=== PATIENT | male | born 1970 | race Caucasian/White ===

== ENCOUNTER 2024-01-07 15:03 | Inpatient (IN) | payer SELFPAY ==
[2024-01-07] VITALS (12 sets, daily range): BP systolic 104–141; BP diastolic 66–90; PULSE 94–108; RESP 14–27; TEMP 36.6–37.2; O2SAT 92–97; BMI 28.6; BMI 28.0
--- NOTE | 2024-01-07 15:29 | EKG12_ITS ---
Test Reason : HYPOGLYCEMIA Blood Pressure : / mmHG Vent. Rate : 109 BPM Atrial Rate : 109 BPM P-R Int : 144 ms QRS Dur : 080 ms QT Int : 332 ms P-R-T Axes : 027 012 031 degrees QTc Int : 447 ms Sinus tachycardia Otherwise normal ECG Confirmed by NAVNEET CRUZ, JUANITO ([id number]), sound editor MCKINLEY HERNANDEZ ([id number]) on 01/09/2024 10:00:14 AM Referred By: Confirmed By:VIRGIL TOTH MD
[2024-01-07] MEDS: 0.9% Normal Saline (1000mL) 1,000 ML 999 ML IV ×2 (15:52→17:40)
[2024-01-07 15:58] LABS: Blood Gas Specimen Type VEN; O2 Delivery Device Not entered; SITE Not entered; VBG BASE EXCESS 0 mmol/L (-1.0-3.5); VBG Bicarbonate 24 mmol/L (22-26); VBG PO2 54 mmHg (25-40); VBG SO2 89 % (50-70); VBG TCO2 25 mmol/L (23-33); VBG pCO2 35.3 mmHg (41-51); VBG pH 7.44 (7.32-7.42)
[2024-01-07 15:58] LABS: Absolute Lymphocyte Count 0.83 X10^3/uL (0.83-4.51); Absolute Neutrophil Count 12.5 X10^3/uL (2.0-7.7); Basophil# 0.04 X10^3/uL; Basophil% 0.3 % (0-1); Eosinophil# 0.03 X10^3/uL; Eosinophils% 0.2 % (0-5); Hematocrit 34.3 % (40-54); Hemoglobin 11.8 g/dL (13.0-16.5); Lymphocyte # 0.83 X10^3/ul (0.83-4.51); Lymphocyte % 5.2 % (19-41); Mean Corp Hgb Conc 34.4 g/dL (32-36); Mean Corpuscular Hgb 28.6 pg (27.0-32.0); Mean Corpuscular Volume 83.3 fL (80-94); Mean Platelet Vol. 11.1 fl (6.2-12.0); Monocyte# 2.11 X10^3/uL; Monocyte% 13.2 % (0-10); NRBC Flagged by Analyzer 0 % (0-5); Neutrophil # 12.48 X10^3/uL (2.7-7.7); Neutrophil % 78.2 % (47-70); POSITIVE DIFFERENTIAL YES; Platelet Count 123 K/mm3 (150-450); RBC Distribution Width CV 14.1 % (11.6-14.6); Red Blood Count 4.12 M/mm3 (4.6-6.2)
[2024-01-07 16:00] LABS: Differential Indicated SCAN CRITERIA MET
--- NOTE | 2024-01-07 16:00 | RAD_ITS ---
STUDY: X-RAY CHEST REASON FOR EXAM: Male, 53 years old. weakness TECHNIQUE: PA and lateral views of the chest. COMPARISON: None. FINDINGS: The lungs are clear and expanded. There is no demonstrated pleural abnormality. Normal size heart. Normal mediastinum and iron. Normal visualized pulmonary arteries. Normal visualized aortic arch and descending thoracic aorta. Normal visualized thoracic spine. Normal visualized ribs, clavicles, and shoulders. There is no demonstrated abnormality of the visualized soft tissue structures of the upper abdomen. RAD/Chest PA and Lateral IMPRESSION: Normal x-ray examination of the chest. Electronically Signed: Jono Dorsey MD at 16:12 EDT ,
--- NOTE | 2024-01-07 16:05 | EDS_ITS ---
HPI History of Present Illness Chief Complaint: Hyperglycemia Informant: patient Narrative Narrative: Patient is a 53-year-old male with history of [id number] diabetes mellitus as well as lisinopril presenting with generalized malaise and elevated blood sugar. Blood sugar at home was greater than 500. Yesterday family knows that he started to be generally weak, have increased urination and act confused. Family at the bedside also notes his color seems off. Patient states has been compliant with his medications but has not recently had an A1c (has an order but has not gotten it done yet). 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 Does have history of hospitalization for hyperglycemia 10 years ago when he was first diagnosed with diabetes. Denies any reported fever, nausea, vomiting, chest pain, shortness of breath or other acute complaints at this time besides generally does not feeling well. No other complaints or concerns reported at this time. [facility] Medical History (Updated 01/08/24 @ 01:[address] 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 Smoking Status: Current every day smoker tobacco type: cigarettes and smokeless tobacco alcohol intake: never substance use type: does not use ROS ROS ED Constitutional Constitutional ED: Reports sweats; Denies chills or fever(s) Eyes Eyes: Denies change in vision ENT ENT ED: Denies sore throat Cardiovascular Cardiovascular: Denies chest pain Respiratory/Chest Respiratory/Chest: Denies cough or dyspnea Gastrointestinal Gastrointestinal: Denies abdominal pain, diarrhea, nausea or vomiting Genitourinary Genitourinary ED: Reports urinary frequency; Denies dysuria Musculoskeletal Musculoskeletal: Reports back pain and other Details: Chronic low back pain, no significant change at this time Integumentary Denies rash Neurologic Neurologic: Reports weakness; Denies headache(s) Hematologic/Lymphatic Hematologic/Lymphatic: Denies easy bleeding EXAM Physical Exam Const Vital Signs: 01/07/24 15:04 01/07/24 15:54 01/07/24 16:00 Temperature 98.2 F Temperature Source Temporal Pulse Rate 108 H 108 H Respiratory Rate 16 21 H Respiratory Effort Normal Respiratory Pattern Tachypnea Blood Pressure 112/67 111/81 H Blood Pressure Mean 82 90 Pulse Ox 96 96 Oxygen Delivery Method Room Air Room Air 01/07/24 16:00 01/07/24 16:15 01/07/24 16:30 Temperature 98.9 F Temperature Source Oral Pulse Rate 103 H 98 Respiratory Rate 18 25 H Respiratory Effort Respiratory Pattern Blood Pressure 111/81 H 113/72 124/79 H Blood Pressure Mean 90 84 88 Pulse Ox 94 96 Oxygen Delivery Method Room Air Room Air 01/07/24 16:45 01/07/24 17:00 01/07/24 17:30 Temperature 98.7 F Temperature Source Pulse Rate 95 101 H 106 H Respiratory Rate 14 18 22 H Respiratory Effort Respiratory Pattern Blood Pressure 111/66 108/73 109/71 Blood Pressure Mean 82 86 83 Pulse Ox 93 92 97 Oxygen Delivery Method Room Air 01/07/24 17:45 01/07/24 17:58 Temperature 98.7 F Temperature Source Oral Pulse Rate 104 H Respiratory Rate 17 Respiratory Effort Respiratory Pattern Tachypnea Blood Pressure 122/71 H Blood Pressure Mean 88 Pulse Ox 94 Oxygen Delivery Method Room Air Positive well nourished and well developed Constitutional Narrative: Ill-appearing General Appearance ED: well developed and pallor HEENT Reports dry mucous membranes Mouth ED: Yes dry mucous membranes Mouth: dry mucous membranes Eyes PERRL and EOMs intact bilaterally General Eye ED: Negative for pale conjunctiva or scleral icterus Neck supple and no JVD General: Negative for tenderness Chest Wall inspection of chest normal Resp Resp Narrative: Tachypneic, rhonchorous breath sounds at the bases, right worse than left Auscultation: Negative for wheezes Cardio regular rhythm Rate: tachycardic GI normal to inspection, nondistended, normoactive bowel sounds and non-tender Back/Spine no CVA tenderness Extremity normal to inspection Neuro oriented x3 Neuro Narrative: Acting appropriate but generally weak and slightly slow to respond. Speech is not slurred but is not as sharp as typical (I suspect this is more from dry mouth) Sensorium / Orientation: alert Motor Exam: general weakness Psych mental status grossly normal Skin no rashes or lesions noted and no wounds General Skin Exam: pallor MDM MDM MDM Narrative Medical decision making narrative: Patient is evaluate for generalized weakness and elevated blood glucose. Patient is ill-appearing but nontoxic. Vital signs significant for tachycardia and he is also tachypneic on my examination. Workup for DKA, HHNK as well as underlying infection or cardiac cause of the elevated blood sugar is started. Patient is given IV fluids in the emergency room initially. Patient is white blood cell count of 16,000 with left shift. Lactate is normal. VBG is largely normal with no signs of acidosis. His BMP does show hyperglycemia with hyponatremia of 124 which I suspect is pseudo associated with his hyperglycemia. Creatinine is elevated at 1.61 but do not have a baseline to compare to. Bicarb and anion gap are normal. Acetone is negative. He is hyperglycemic and after liter of fluid is continue to have an elevated blood sugars was given 10 units of insulin. Patient still does weak-appearing. Will be admitted for further evaluation, treatment of his hyperglycemia and treatment of presumed DIVINE. Case discussed admitting physician, Dr. Ibarra, who is agreeable this plan of care. Lab Data Attestation: I reviewed the patient's lab results. Labs: Laboratory Results - last 24 hr 01/07/24 01/07/24 01/07/24 15:47 15:50 16:16 WBC 16.0 H RBC 4.12 L Hgb 11.8 L Hct 34.3 L MCV 83.3 MCH 28.6 MCHC 34.4 RDW Std Deviation 43.0 RDW Coeff of Yassine 14.1 Plt Count 123 L MPV 11.1 Immature Gran % (Auto) 2.900 H Neut % (Auto) 78.2 H Lymph % (Auto) 5.2 L [place] % (Auto) 13.2 H Eos % (Auto) 0.2 Baso % (Auto) 0.3 Absolute Neuts (auto) 12.5 H Absolute Lymphs (auto) 0.83 Nucleated RBC % 0 Differential Comment SEE COMMENT Diff Path Review May foll Platelet Estimate SLT DEC RBC Morphology N CHROM Anisocytosis RARE Sodium 124 L Potassium 3.8 Chloride 90 L Carbon Dioxide 23.0 Anion Gap 11 BUN 72 H Creatinine 1.61 H Estim Creat Clear Calc 54.06 Est GFR (MDRD) Af Amer 58 L Est GFR (MDRD) Non-Af 48 L BUN/Creatinine Ratio 44.7 H Glucose 490 H* Hemoglobin A1c 10.8 H Lactic Acid 0.6 Calcium 9.9 Total Bilirubin 1.70 H AST 22 ALT 30 Alkaline Phosphatase 183 H Total Protein 6.7 Albumin 2.0 L Globulin 4.7 H Albumin/Globulin Ratio 0.4 L Urine Color Urine Clarity Urine pH Ur Specific [place] Urine Protein Urine Glucose (UA) Urine Ketones Urine Occult Blood Urine Nitrite Urine Bilirubin Urine Urobilinogen Ur Leukocyte Esterase Urine RBC Urine WBC Ur Squamous Epith Cells Urine Bacteria Urine Mucus Urine Opiates Screen Urine Methadone Screen Ur Barbiturates Screen Ur Phencyclidine Scrn Ur Amphetamines Screen MDMA (Ecstasy) Screen U Benzodiazepines Scrn Urine Cocaine Screen U Cannabinoids Screen Ur Drug Screen Comment Acetone Level NEGATIVE POC Glucose 439 H 01/07/24 01/07/24 01/07/24 16:23 16:40 18:10 WBC RBC Hgb Hct MCV MCH MCHC RDW Std Deviation RDW Coeff of Yassine Plt Count MPV Immature Gran % (Auto) Neut % (Auto) Lymph % (Auto) [place] % (Auto) Eos % (Auto) Baso % (Auto) Absolute Neuts (auto) Absolute Lymphs (auto) Nucleated RBC % Differential Comment Diff Path Review Platelet Estimate RBC Morphology Anisocytosis Sodium Potassium Chloride Carbon Dioxide Anion Gap BUN Creatinine Estim Creat Clear Calc Est GFR (MDRD) Af Amer Est GFR (MDRD) Non-Af BUN/Creatinine Ratio Glucose Hemoglobin A1c Lactic Acid Calcium Total Bilirubin AST ALT Alkaline Phosphatase Total Protein Albumin Globulin Albumin/Globulin Ratio Urine Color Yellow Urine Clarity Clear Urine pH 6.0 Ur Specific [place] 1.010 Urine Protein 15 H Urine Glucose (UA) 1000 H Urine Ketones Negative Urine Occult Blood 25 H Urine Nitrite Negative Urine Bilirubin Negative Urine Urobilinogen Normal Ur Leukocyte Esterase Negative Urine RBC 0 SEEN Urine WBC 0 SEEN Ur Squamous Epith Cells 0 SEEN Urine Bacteria 1+ Urine Mucus 0 SEEN Urine Opiates Screen NEGATIVE Urine Methadone Screen NEGATIVE Ur Barbiturates Screen NEGATIVE Ur Phencyclidine Scrn NEGATIVE Ur Amphetamines Screen NEGATIVE MDMA (Ecstasy) Screen NEGATIVE U Benzodiazepines Scrn NEGATIVE Urine Cocaine Screen NEGATIVE U Cannabinoids Screen NEGATIVE Ur Drug Screen Comment Acetone Level POC Glucose 431 H 372 H ABG Data ABG results: ABG 01/07/24 15:55 Specimen Type FELTON Sample Site Not entered VBG pH 7.44 H VBG pO2 54 H VBG HCO3 24 VBG Total CO2 25 VBG O2 Sat (Calc) 89 H VBG Base Excess 0 POC Mix VBG pCO2 Pt Tmp 35.3 L O2 Delivery Device Not entered Radiography Chest X-Ray - ED: 2 View, Read by ED Physician, Read by Radiologist and No Acute Disease Diagnostic Testing: Clinical Impression(s) from Imaging Studies Chest X-Ray 01/07/24 16:00 IMPRESSION: Normal x-ray examination of the chest. Electronically Signed: Jono Dorsey MD at 16:12 EDT , Rhythm Strip Rhythm Strip: Sinus Tach Rate: 109 Ectopy: None EKG Initial EKG: Attestation: I personally reviewed and interpreted this EKG as follows: Interpretation: Sinus Tachycardia Comments: Sinus tachycardia rate of 109 bpm Normal axis Normal intervals Normal ST segments Management Discussion w/another healthcare provider: Hospitalist Discharge Plan Dx/Rx/DC Orders Clinical Impression: Hyperglycemia, Pseudohyponatremia, Elevated serum creatinine, Leukocytosis Disposition Disposition: Acute Care Hospital [facility] Discharge Date/Time: 01/07/24 19:47
[2024-01-07 16:14] LABS: Bedside Glucose 439 mg/dL (74-106)
[2024-01-07 16:35] LABS: Mucous, Urine 0 SEEN /hpf (<or=2+); Red Blood Cells-Urine 0 SEEN /hpf (0-5); Squamous Epithelial Cells - UA 0 SEEN /hpf (0-5); White Blood Cells 0 SEEN /hpf (0-5)
[2024-01-07 16:40] LABS: Color, Urine Yellow (Yellow); Glucose, Dipstick 1000 mg/dl (Normal); Ketone-Dipstick Negative (Negative); Leukocyte Esterase-Dipstick Negative /ul (Negative); Nitrite-Dipstick Negative (Negative); Occult Blood-Urine 25 /ul (Negative); Protein-Dipstick 15 mg/dl (Negative); Urine Bilirubin Dipstick Negative (Negative); Urine Clarity Clear (Clear); Urine Urobilinogen Normal (Normal)
[2024-01-07 16:42] LABS: Anisocytosis RARE; Platelet Estimate SLT DEC (ADEQ); Red Cell Morphology N CHROM NORMAL (NORM C&C)
[2024-01-07 16:47] LABS: Bacteria 1+ /hpf (None Seen)
[2024-01-07 16:53] LABS: ALB/GLOB Ratio 0.4 RATIO (0.9-2.4); AST(SGOT) 22 U/L (15-37); Alanine Aminotransfer ALT/SGPT 30 U/L (16-61); Alkaline Phosphatase 183 U/L (45-117); Anion Gap 11 (5-15); BUN 72 mg/dL (7-18); BUN/Creat Ratio 44.7 RATIO (10-20); Calcium,Total 9.9 mg/dL (8.5-10.1); Chloride 90 mmol/L (98-107); Creatinine, Serum 1.61 mg/dL (0.70-1.30); EST Glomerular Filtration Rate 48 mL/min (>60); Est Glom Filt Rate - Afr Amer 58 mL/min (>60); Estimated Creatinine Clearance 54.06 ml/min; Globulin 4.7 g/dL (2.2-4.2); Glucose 490 mg/dL (74-106); Potassium 3.8 mmol/L (3.5-5.1); Protein, Total 6.7 g/dL (6.4-8.2); Sodium Level 124 mmol/L (136-145)
[2024-01-07 16:57] LABS: Lactic Acid 0.6 mmol/L (0.4-1.9)
[2024-01-07 17:56] LABS: Bedside Glucose 431 mg/dL (74-106)
[2024-01-07] MEDS: Insulin Lispro 100 UNIT/ML INSULN.PEN 10 UNIT SC (18:10)
[2024-01-07 18:31] LABS: Bedside Glucose 372 mg/dL (74-106)
--- NOTE | 2024-01-07 18:33 | PCM.HP.STD ---
HPI - General General Date of Admission: 01/07/24 Date of Service: 01/07/24 Chief Complaint: Generalized malaise and elevated blood sugar HPI Rene HAMEED, is a 53 M who presented to the emergency department at [facility] on 01/07/2024 complaining of generalized malaise and elevated blood sugar. He is a known diabetic and is only on metformin at home. 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 He does have a history of hospitalization for hyperglycemia about 10 years ago when he was first diagnosed with diabetes but none since. He denies any fever, nausea, chest pain, cough, sputum production, diarrhea, nausea or vomiting. He has had no shortness of breath but just states he generally does not feel well. He has been compliant with his metformin but he states I do not think it is doing anything to help me. Patient acknowledges that he feels generally weak and has had polyuria and polydipsia with some intermittent confusion. Vital signs on presentation showed temperature of 98.2, heart rate 108, respiratory 16, blood pressure is 112/67 and oxygen saturation was 96% on room air. CBC shows a leukocytosis with white count of 16.0 and a left shift with a 78.2% neutrophilia. He has mild anemia with a hemoglobin of 11.8 and thrombocytopenia with a platelet count of 123,000 VBG was obtained and the pH was 7.44. His chemistry panel showed pseudohyponatremia with a sodium of 124 however his blood sugar was 490. His serum bicarb and anion gap were 23 and 11 respectively. His BUN is 72 with a serum creatinine of 1.61 consistent with severe dehydration however we do not have a baseline. Blood sugar again was 490. Lactic acid was 0.6. His total bilirubin was 1.7. Liver function was unremarkable. We were able to obtain a hemoglobin A1c that was 10.8. His UA had significant glucosuria and some proteinuria with some occult blood but was not consistent with infection and the specific gravity was 1.010. Acetone level was unremarkable. Chest x-ray was unremarkable. Cultures were sent due to his leukocytosis however no definitive source of infection was noted and therefore antibiotics were not initiated. He was given 10 units of subcu insulin and aggressive hydration with 2 L of fluid and admission was requested. [facility] Medical History (Updated 01/07/24 @ 19:[address] Estela Ibarra, DO) Tobacco abuse Hypertension Diabetes mellitus Home Medications ?Medication ?Instructions ?Recorded ?Last Taken ?Type lisinopril 20 mg tablet 20 mg PO DAILY HTN 01/07/24 Unknown History metformin 500 mg tablet 1,000 mg PO BID 01/07/24 Unknown History Allergy/AdvReac Type Severity Reaction Status Date / Time No Known Allergies Allergy Verified 01/07/24 15:04 Family History (Updated 01/07/24 @ 19:[address] Estela Ibarra, DO) Other Diabetes Hypertension no surgical history Social History (Updated 01/07/24 @ 19:[address] 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 Smoking Status: Current every day smoker tobacco type: cigarettes and smokeless tobacco alcohol intake: never substance use type: does not use ROS Constitutional Constitutional: Reports fatigue, malaise and weakness; Denies anorexia, change in weight, chills, fever(s), night sweats or other Eyes Eyes: Reports blurry vision; Denies change in eye color, change in vision, discharge from eye(s), double vision, erythema, eye pain, loss of vision or other ENT HEENT: Denies abnormal hearing, dysphagia, ear pain, epistaxis, headache(s), hearing loss, nasal congestion, nasal discharge, post nasal drip, sinus pressure, sore throat or other Cardiovascular Cardiovascular: Denies chest pain, claudication, dyspnea on exertion, edema, lightheadedness, orthopnea, palpitations, paroxysmal nocturnal dyspnea, rapid heart rate, syncope or other Respiratory/Chest Respiratory/Chest: Denies cough, dyspnea, excessive phlegm production, hemoptysis, productive cough, shortness of breath at rest, shortness of breath with exertion, wheezing or other Gastrointestinal Gastrointestinal: Denies abdominal pain, coffee ground emesis, constipation, diarrhea, dyspepsia, hematemesis, hematochezia, loose stools, melena, nausea, vomiting or other Genitourinary Genitourinary: Reports dysuria and urinary frequency; Denies burning urination, difficulty urinating, hematuria, nocturia, urinary hesitancy, urinary incontinence, urinary urgency or other Musculoskeletal Musculoskeletal: Denies arthralgias, back pain, joint pain, joint stiffness, joint swelling, myalgias, neck pain or other Neurologic Neurologic: Reports confusion; Denies abnormal gait, abnormal speech, disequilibrium, dizziness, focal weakness, headache(s), numbness, paresthesias, seizure-like activity, seizures, syncope, tingling, tremor(s) or other Psychiatric Psychiatric: Denies anxiety, depression, homicidal ideation, suicidal ideation or other Endocrine Endocrinology: Reports polydipsia and polyuria; Denies change in body appearance, cold intolerance, excessive sweating, heat intolerance or other Hematologic/Lymphatic Hematologic/Lymphatic: Denies anemia, easy bleeding, easy bruising, lymphadenopathy or other Allergic/Immunologic Allergic/Immunologic: Denies rhinitis, hives, eczemia, asthma or other Vital Signs Vital Signs Vital Signs: 01/07/24 15:04 01/07/24 15:54 01/07/24 16:00 Temperature 98.2 F Temperature Source Temporal Pulse Rate 108 H 108 H Respiratory Rate 16 21 H Respiratory Effort Normal Respiratory Pattern Tachypnea Blood Pressure 112/67 111/81 H Blood Pressure Mean 82 90 Pulse Ox 96 96 Oxygen Delivery Method Room Air Room Air 01/07/24 16:00 01/07/24 16:15 01/07/24 16:30 Temperature 98.9 F Temperature Source Oral Pulse Rate 103 H 98 Respiratory Rate 18 25 H Respiratory Effort Respiratory Pattern Blood Pressure 111/81 H 113/72 124/79 H Blood Pressure Mean 90 84 88 Pulse Ox 94 96 Oxygen Delivery Method Room Air Room Air 01/07/24 16:45 01/07/24 17:00 01/07/24 17:30 Temperature 98.7 F Temperature Source Pulse Rate 95 101 H 106 H Respiratory Rate 14 18 22 H Respiratory Effort Respiratory Pattern Blood Pressure 111/66 108/73 109/71 Blood Pressure Mean 82 86 83 Pulse Ox 93 92 97 Oxygen Delivery Method Room Air 01/07/24 17:45 Temperature 98.7 F Temperature Source Oral Pulse Rate 104 H Respiratory Rate 17 Respiratory Effort Respiratory Pattern Blood Pressure 122/71 H Blood Pressure Mean 88 Pulse Ox 94 Oxygen Delivery Method Room Air Weight Weight: 83.007 kg Body Mass Index (BMI) 28.6 Physical Exam Const alert, oriented x3, no apparent distress, average body habitus and well nourished; Negative for healthy appearing Constitutional Narrative: Middle-aged, white male, lying in bed, sleeping but awakens easily, alert and oriented but response times are slightly delayed, appears mildly flushed General Appearance: cooperative HEENT normocephalic, head/scalp atraumatic and hearing grossly normal bilaterally; Negative for moist oral mucous membranes HEENT Narrative: Mallampati 2, no thrush, mucous membranes are dry Eyes PERRL, EOMs intact bilaterally and conjunctivae normal Eyes Narrative: No scleral icterus Neck no lymphadenopathy and supple Neck Narrative: Trachea midline, no thyroid enlargement Resp normal respiratory effort, no retractions, no use of accessory muscles and No clear to auscultation bilaterally Resp Narrative: Fine crackles at left base Auscultation: crackles; Negative for rhonchi or wheezes Cardio regular rhythm, S1 normal heart sound, S2 normal heart sound, no murmurs, no rub, no gallops and no clicks Cardio Narrative: Mild tachycardia GI normal to inspection, nondistended, normoactive bowel sounds, soft to palpation and non-tender Extremity no clubbing, cyanosis or edema Extremity Narrative: Pedal pulses are 2+, radial pulses are 2+ Skin Skin Narrative: Scratch on right hand with no signs of infection Neuro oriented x3, CN's II-XII intact bilaterally, moves all extremities and no focal motor deficits Neuro Narrative: Generalized weakness noted but no focal deficits Speech: speech normal Psych Psych Narrative: Affect is flat and appropriate for the situation, eye contact is good and patient interacts appropriately Results Lab / Micro Data 01/07/24 15:47 01/07/24 15:47 Labs: Laboratory Results - last 24 hr 01/07/24 15:47: WBC 16.0 H, RBC 4.12 L, Hgb 11.8 L, Hct 34.3 L, MCV 83.3, MCH 28.6, MCHC 34.4, RDW Std Deviation 43.0, RDW Coeff of Yassine 14.1, Plt Count 123 L, MPV 11.1, Immature Gran % (Auto) 2.900 H, Neut % (Auto) 78.2 H, Lymph % (Auto) 5.2 L, [place] % (Auto) 13.2 H, Eos % (Auto) 0.2, Baso % (Auto) 0.3, Absolute Neuts (auto) 12.5 H, Absolute Lymphs (auto) 0.83, Nucleated RBC % 0, Differential Comment SEE COMMENT, Diff Path Review May foll, Platelet Estimate SLT DEC, RBC Morphology N CHROM, Anisocytosis RARE, Sodium 124 L, Potassium 3.8, Chloride 90 L, Carbon Dioxide 23.0, Anion Gap 11, BUN 72 H, Creatinine 1.61 H, Estim Creat Clear Calc 54.06, Est GFR (MDRD) Af Amer 58 L, Est GFR (MDRD) Non-Af 48 L, BUN/Creatinine Ratio 44.7 H, Glucose 490 H*, Calcium 9.9, Total Bilirubin 1.70 H, AST 22, ALT 30, Alkaline Phosphatase 183 H, Total Protein 6.7, Albumin 2.0 L, Globulin 4.7 H, Albumin/Globulin Ratio 0.4 L, Acetone Level NEGATIVE 01/07/24 15:50: POC Glucose 439 H 01/07/24 16:16: Lactic Acid 0.6 01/07/24 16:23: Urine Color Yellow, Urine Clarity Clear, Urine pH 6.0, Ur Specific [place] 1.010, Urine Protein 15 H, Urine Glucose (UA) 1000 H, Urine Ketones Negative, Urine Occult Blood 25 H, Urine Nitrite Negative, Urine Bilirubin Negative, Urine Urobilinogen Normal, Ur Leukocyte Esterase Negative, Urine RBC 0 SEEN, Urine WBC 0 SEEN, Ur Squamous Epith Cells 0 SEEN, Urine Bacteria 1+, Urine Mucus 0 SEEN 01/07/24 16:40: POC Glucose 431 H 01/07/24 18:10: POC Glucose 372 H ABG Data ABG results: ABG 01/07/24 15:55 Specimen Type FELTON Sample Site Not entered VBG pH 7.44 H VBG pO2 54 H VBG HCO3 24 VBG Total CO2 25 VBG O2 Sat (Calc) 89 H VBG Base Excess 0 POC Mix VBG pCO2 Pt Tmp 35.3 L O2 Delivery Device Not entered Rhythm Strip Rhythm Strip: Sinus Tach Rate: 109 Ectopy: None Imaging Radiology Impression Chest X-Ray 01/07/24 16:00 IMPRESSION: Normal x-ray examination of the chest. Electronically Signed: Jono Dorsey MD at 16:12 EDT , Assessment & Plan Assessment/Plan (1) Hyperglycemia: (2) Elevated serum creatinine: (3) Pseudohyponatremia: (4) Leukocytosis: (5) Anemia: (6) Hyperbilirubinemia: (7) Tachycardia: (8) Thrombocytopenia: PLAN: Plan Hyperglycemia secondary to uncontrolled DM-2 -A1c was able to be obtained and 10.8 -Discontinue metformin -Start subcu Lantus 20 units at at bedtime -SSI high-dose -Cardiac/carb controlled diet -Aggressive IV fluids Elevated serum creatinine -Baseline unknown however 1.61 on admission -Appears to be severely dehydrated and I do highly suspect this is DIVINE -Aggressive IV fluids -Hold home lisinopril and metformin -Repeat lab in a.m. -Avoid nephrotoxins as able Leukocytosis -Etiology unclear -Chest x-ray and UA are not consistent with infection -Check respiratory viral panel and COVID -May be related to marked dehydration -Aggressive IV fluids -Blood cultures were obtained -Since patient not having any specific symptoms, fevers and appears to be significantly dehydrated we will hold off on antibiotics for now but low threshold for initiating any if symptoms change Hyperbilirubinemia -Highly anticipate secondary to above -Repeat lab in a.m. Anemia -Mild and baseline is unknown -Repeat CBC in a.m. Thrombocytopenia -Etiology unclear -Will check respiratory viral panel and COVID PCR -Check coags in a.m. -Repeat CBC in a.m. Tachycardia -Seems to be improving with IV fluids Hyponatremia -Suspect multifactorial with partially being pseudohyponatremia from hyperglycemia -Sodium corrected for glucose is 133 -Highly suspect also related to dehydration and will continue IV fluids -Recheck in a.m. DM-2 -Uncontrolled with a hemoglobin A1c of 10.8 -Treatment as above Hypertension -Hold lisinopril due to elevated serum creatinine -As needed hydralazine available for systolic blood pressure greater than 160 Tobacco abuse -Recommend cessation -Nicotine patch available if needed DVT prophylaxis -Subcu Lovenox 40 daily CODE STATUS -Full code Charges/Coding Visit Charges Inpatient E&M: 66450 Init Hosp L2
[2024-01-07 19:18] LABS: Hemoglobin A1c 10.8 % (3.8-5.6)
[2024-01-07] MEDS: Lactated Ringers 1,000 ML 100 ML IV (20:37)
[2024-01-07] MEDS: Insulin Lispro 100 UNIT/ML INSULN.PEN SC (20:53)
--- NOTE | 2024-01-07 21:35 | PCM.HOSP.N ---
Hospitalist Note Patient more confused and agitated after arriving to the floor. Very restless. Given leukocytosis on presentation we will start Levaquin. Check strep pneumo and Legionella antigens. COVID and respiratory viral panel are pending. Blood cultures are already pending. Will give risperidone 1 mg now.
[2024-01-07 21:56] LABS: Amphetamine Urine VISTA NEGATIVE (<1000 ng/mL); Barbiturate Urine VISTA NEGATIVE (< 200 ng/mL); Benzodiazepine Urine VISTA NEGATIVE (< 200 ng/mL); Cocaine Urine VISTA NEGATIVE (< 300 ng/mL); Ecstacy Urine VISTA NEGATIVE (< 500 ng/mL); Methadone Urine VISTA NEGATIVE (< 300 ng/mL); PCP Urine VISTA NEGATIVE (< 25 ng/mL); THC Urine VISTA NEGATIVE (< 50 ng/mL); Vista UDS pH Range 6
[2024-01-07] MEDS: levoFLOXacin IV 750 MG in Empty Viaflex Q24 100 MG IV (22:33)
[2024-01-07] MEDS: RisperiDONE 1 MG Tablet PO (22:33)
[2024-01-07 22:49] LABS: Alcohol, Blood (Medical)-Serum < 3.0 mg/dL
[2024-01-07 22:59] LABS: Bedside Glucose 284 mg/dL (74-106)
[2024-01-07 22:59] LABS: Bedside Glucose 226 mg/dL (74-106)
[2024-01-07] MEDS: MELATONIN 3 MG TABLET PO (23:15)
[2024-01-07] MEDS: Acetaminophen 325 MG Tablet 650 MG PO (23:16)
[2024-01-08] VITALS (29 sets, daily range): BP systolic 81–170; BP diastolic 44–104; PULSE 85–122; RESP 12–38; TEMP 36.6–38.4; O2SAT 86–100; BMI 27.7; BMI 28.6
[2024-01-08 02:30] LABS: Bedside Glucose 305 mg/dL (74-106)
--- NOTE | 2024-01-08 02:54 | NURSING ---
Pt assisted up to BR, weakness with tremors and unsteady. Vitals signs taken, wnl. Pt called friend on phone speaker while sitting on toilet stating, I think you need to come down here, because I think I'm dying. Pt friend responded, Did you get the stuff in your wallet? Pt yelled, NO! Friend, Why not? Pt, because there's people been in here all night. Friend, What people? Pt, nurses, all night. Friend, they've been in there with you all night? Pt, Yes. Just come down here. Friend, I can't right now. Pt ok, bye. Pt wallet locked in med electron gun inspector room.
[2024-01-08] MEDS: Insulin Lispro 100 UNIT/ML INSULN.PEN SC ×3 (05:52→16:36)
--- NOTE | 2024-01-08 05:55 | RAD_ITS ---
STUDY: X-RAY CHEST REASON FOR EXAM: Male, 53 years old. SOB TECHNIQUE: Single AP portable view of the chest. COMPARISON: Comparison is made with prior study dated January 07, 2024. FINDINGS: Persistent increased linear markings at the left lung base suggestive of left basilar atelectasis. There is no demonstrated pleural abnormality. Normal size heart. Normal mediastinum and iron. Normal visualized pulmonary arteries. Normal visualized aortic arch and descending thoracic aorta. There are degenerative changes of the visualized thoracic spine. Normal visualized ribs, clavicles, and shoulders. There is no demonstrated abnormality of the visualized soft tissue structures of the upper abdomen. RAD/Chest 1 View (Portable) IMPRESSION: Increased linear markings at the left lung base suggestive of left basilar atelectasis. Electronically Signed: Israel Cote MD at 8:14 EDT ,
[2024-01-08] MEDS: Lactated Ringers 1,000 ML 100 ML IV (05:58)
[2024-01-08 06:27] LABS: Bedside Glucose 278 mg/dL (74-106)
--- NOTE | 2024-01-08 07:54 | NURSING ---
talked with manager community development and primary RN, security called requesting HRO come to unit when arrives as per night manager questioning substance in pt's possession, wallet that is now locked in med drawer. talked with Dr. Muñiz also updated on conversation heard by night manager and pt's friend as well as symptoms of withdrawl.
[2024-01-08 07:58] LABS: Absolute Lymphocyte Count 0.49 X10^3/uL (0.83-4.51); Absolute Neutrophil Count 13.6 X10^3/uL (2.0-7.7); Basophil# 0.09 X10^3/uL; Hematocrit 32.8 % (40-54); Lymphocyte # 0.49 X10^3/ul (0.83-4.51); Mean Corp Hgb Conc 33.5 g/dL (32-36); Mean Corpuscular Hgb 28.2 pg (27.0-32.0); Mean Corpuscular Volume 84.1 fL (80-94); Mean Platelet Vol. 11.4 fl (6.2-12.0); Monocyte# 0.89 X10^3/uL; NRBC Flagged by Analyzer 0 % (0-5); POSITIVE DIFFERENTIAL YES; POSITIVE MORPHOLOGY YES; Platelet Count 118 K/mm3 (150-450); RBC Distribution Width SD 43.2 fl (35.1-43.9); White Blood Count 15.3 K/mm3 (4.4-11.0)
[2024-01-08 08:12] LABS: Differential Indicated SCAN CRITERIA MET
[2024-01-08 08:32] LABS: ALB/GLOB Ratio 0.4 RATIO (0.9-2.4); AST(SGOT) 26 U/L (15-37); Alanine Aminotransfer ALT/SGPT 25 U/L (16-61); Albumin, Serum 1.7 g/dL (3.2-5.0); Alkaline Phosphatase 180 U/L (45-117); Anion Gap 11 (5-15); BUN 46 mg/dL (7-18); BUN/Creat Ratio 46.4 RATIO (10-20); Chloride 95 mmol/L (98-107); Creatinine, Serum 0.99 mg/dL (0.70-1.30); EST Glomerular Filtration Rate 83 mL/min (>60); Est Glom Filt Rate - Afr Amer 101 mL/min (>60); Estimated Creatinine Clearance 89.57 ml/min; Globulin 4.4 g/dL (2.2-4.2); Glucose 295 mg/dL (74-106); Magnesium 1.8 mg/dL (1.6-2.6); Phosphorus 1.6 mg/dL (2.5-4.9); Potassium 3.5 mmol/L (3.5-5.1); Protein, Total 6.1 g/dL (6.4-8.2); Sodium Level 131 mmol/L (136-145); Thyroid Stim Hormone (TSH) 0.26 uIU/mL (0.358-3.74)
[2024-01-08] MEDS: LORazepam 1 MG Tablet PO (08:39)
[2024-01-08] MEDS: Enoxaparin 40 MG/0.4 ML Syringe SC (08:40)
[2024-01-08 08:55] LABS: Erythrocyte Sedimentation Rate 86 mm/hr (0-20)
[2024-01-08] MEDS: levoFLOXacin IV 750 MG in Empty Viaflex Q24 100 MG IV (09:01)
[2024-01-08] MEDS: Insulin Glargine-YFGN 100 UNIT/ML Pen 15 UNIT SC ×2 (09:02→22:57)
[2024-01-08 09:21] LABS: Lymphocyte 5 % (19-41); Metamyelocyte 1 % (0-1); Neutrophil-Band 5 % (0-5); Neutrophil-Segmented 88 % (47-70); Promyelocyte 1 % (0-0); Total Cells Counted 100 (MANUAL DIFF)
[2024-01-08 09:22] LABS: Platelet Estimate SLT DEC (ADEQ); Scan Smear per Review Criteria MANUAL DIFF
--- NOTE | 2024-01-08 10:27 | NURSING ---
HRO in room with primary RN to collect pt's possessions. Dr. Muñiz on the unit and aware. Pt moving spontaneously but not opening eyes and will not verbally respond to HRO or Primary RN, pushing nurse aware when sternal rubbed.
--- NOTE | 2024-01-08 10:32 | NURSING ---
officer raul in at bedside and unknown powder substance and suboxone strip sent with. pt responds to sternal rub and swats away hand but refusing to open eyes or respond to questioning.
--- NOTE | 2024-01-08 10:58 | CASEMGMT ---
EDELMIRA CM to pt room at this time for initial assessment. Pt is currently stuporous and unable to answer questions appropriately. CM to follow.
[2024-01-08] MEDS: Magnesium Sulfate 4gm/100mL 4 GM/100 ML IV.SOLN. IV (11:07)
[2024-01-08 11:08] LABS: Free T3 1.1 pg/mL (2.18-3.98); T4 Free Direct 1.24 ng/dL (0.76-1.46)
[2024-01-08] MEDS: Potassium Phosphate 30 MM in 0.9% Normal Saline (250mL Bag) 250 ML 42 MM IV (11:08)
[2024-01-08] MEDS: Acetaminophen 325 MG Tablet 650 MG PO (11:22)
[2024-01-08 11:47] LABS: Pathologist Review Reviewed
[2024-01-08] MEDS: Piperacil/Tazobactam 4.5 GM in 0.9% Normal Saline (100mL MB+) 100 ML IV (12:01)
[2024-01-08] MEDS: 0.9% Normal Saline (1000mL) 1,000 ML 999 ML IV (12:02)
--- NOTE | 2024-01-08 12:08 | NURSING ---
cps called for Primary RN for evaluation, possible deep sxn
--- NOTE | 2024-01-08 12:10 | NURSING ---
aware primary placed 16fr. ocampo
[2024-01-08 12:21] LABS: Mucous, Urine 0 SEEN /hpf (<or=2+)
[2024-01-08 12:27] LABS: Color, Urine Yellow (Yellow); Glucose, Dipstick 250 mg/dl (Normal); Ketone-Dipstick 15 mg/dl (Negative); Leukocyte Esterase-Dipstick 25 /ul (Negative); Nitrite-Dipstick Negative (Negative); Occult Blood-Urine 25 /ul (Negative); Protein-Dipstick 100 mg/dl (Negative); Specific Gravity, Urine 1.015 (1.002-1.030); Urine Clarity Clear (Clear); Urine Urobilinogen 8 mg/dl (Normal)
[2024-01-08 12:27] LABS: Bedside Glucose 268 mg/dL (74-106)
[2024-01-08 12:28] LABS: Urine Bilirubin Dipstick 3 mg/dL (Negative)
[2024-01-08 12:33] LABS: Bacteria 1+ /hpf (None Seen); Red Blood Cells-Urine 0-5 SEEN /hpf (0-5); Squamous Epithelial Cells - UA 0-5 SEEN /hpf (0-5); White Blood Cells 0-5 SEEN /hpf (0-5)
[2024-01-08] MEDS: Vancomycin HCl 2,000 MG in 0.9% Normal Saline (500mL Bag) 500 ML 250 MG IV (12:39)
--- NOTE | 2024-01-08 13:05 | ECHOCS_ITS ---
Reason For Study: Dyspnea/SOB Procedure This was a 2D Doppler, Color Flow transthoracic echocardiogram. Technically difficult due to patient condition and agitation. Patient scanned supine.Contrast injection was performed. Exam performed portable in ICU/CCU. Left Ventricle Normal LV size. The estimated ejection fraction is 60 %. No evidence for diastolic dysfunction. No regional wall motion abnormalities noted. Right Ventricle Normal RV size. Normal systolic function. Atria The left and right atria are normal. No doppler evidence for ASD. Mitral Valve There is no mitral valve stenosis. No mitral valve insufficiency. Tricuspid Valve There is no tricuspid stenosis. Trivial tricuspid valve insufficiency. Unable to estimate RV systolic pressure due to insufficient tricuspid regurgitant envelope. Aortic Valve Trisinus/trileaflet aortic valve. There is no aortic stenosis. No aortic valve insufficiency. Pulmonic Valve There is no pulmonic valvular stenosis. No pulmonic valve insufficiency. Great Vessels Normal aortic root. Pericardium/Pleural No pericardial effusion. Medication Diluted definity 2ml given slow IV push to enhance endocardial definition. MMode/2D Measurements & Calculations LVIDd: 4.1 cm IVSd: 0.74 cm Ao root diam: 3.9 cm LVIDs: 3.2 cm LVPWd: 0.85 cm LA dimension: 3.7 cm RVDd: 3.9 cm FS: 22.0 % LAV(MOD-bp): 40.9 ml LVAd ap4: 31.4 cm2 SV(MOD-sp4): 50.1 ml LAV(MOD-bp) Indexed: 20.8 ml/m2 LVLd ap4: 8.0 cm LAV(MOD-sp2): 44.3 ml EDV(MOD-sp4): 100.4 ml LAV(MOD-sp4): 31.2 ml EDV(sp4-el): 104.7 ml LVAs ap4: 20.5 cm2 LVLs ap4: 6.9 cm ESV(MOD-sp4): 50.3 ml ESV(sp4-el): 51.4 ml EF(MOD-sp4): 49.9 % EF(sp4-el): 50.9 % SV(sp4-el): 53.3 ml LA A4 area: 14.2 cm2 RA A4 area: 16.1 cm2 TAPSE: 2.2 cm Time Measurements MV dec time: 0.32 sec Doppler Measurements & Calculations MV E max jose: 71.9 cm/sec Lat Peak E' Jose: 12.7 cm/sec Med Peak E' Jose: 8.9 cm/sec MV A max jose: 81.1 cm/sec E/E' lat: 5.7 E/E' med: 8.1 MV E/A: 0.89 MV V2 max: 100.0 cm/sec MV P1/2t max jose: 84.2 cm/sec Ao V2 max: 131.7 cm/sec MV max P.0 mmHg MV P1/2t: 84.2 msec Ao max P.9 mmHg MV V2 mean: 56.0 cm/sec MV mean P.5 mmHg MV dec slope: 292.7 cm/sec2 MV V2 VTI: 21.7 cm MVA(P1/2t): 2.6 cm2 LV V1 max: 126.7 cm/sec PA V2 max: 92.9 cm/sec TR max jose: 136.8 cm/sec LV V1 max P.4 mmHg TR max P.5 mmHg ECHO/Echo Complete W/ Contrast Interpretation Summary The estimated ejection fraction is 60 %. No evidence for diastolic dysfunction. Ordering Physician: Lydia Muñiz Performed By: Emil Mead RCS
--- NOTE | 2024-01-08 13:05 | RAD_ITS ---
STUDY: X-RAY CHEST REASON FOR EXAM: Male, 53 years old. Shortness of breath TECHNIQUE: Single AP portable view of the chest. COMPARISON: Comparison is made with prior study done earlier in the day. FINDINGS: EKG electrodes are seen. Mild residual increased linear markings at the left lung base suggestive of left basilar atelectasis. There has been improvement as compared to prior study. There is no demonstrated pleural abnormality. Normal size heart. Normal mediastinum and iron. Normal visualized pulmonary arteries. Normal visualized aortic arch and descending thoracic aorta. There are diffuse degenerative changes of the visualized thoracic spine. Normal visualized ribs, clavicles, and shoulders. There is no demonstrated abnormality of the visualized soft tissue structures of the upper abdomen. RAD/Chest 1 View (Portable) IMPRESSION: Residual linear atelectasis at the left lung base although there has been improvement as compared to prior study. Electronically Signed: Israel Cote MD at 13:20 EDT ,
--- NOTE | 2024-01-08 13:06 | PCM.RX.CS ---
Consult Antibiotic Management Pharmacy has been consulted to manage selected antibiotic: Vancomycin Type of Intervention Type of Consult: New start Suspected Infection Suspected Infection: Other (UNKNOWN/EMPIRIC) Prior Doses of Antibiotics Prior Doses of Antibiotics Received/Current Regimen: Vancomycin 2000 mg IV given 01/08/24 @ 1239 Labs Labs: Sodium 131 mmol/L (136-145) L 01/08/24 06:09 Potassium 3.5 mmol/L (3.5-5.1) 01/08/24 06:09 Chloride 95 mmol/L (98-107) L 01/08/24 06:09 Carbon Dioxide 25.0 mmol/L (21.0-32.0) 01/08/24 06:09 Anion Gap 11 (5-15) 01/08/24 06:09 BUN 46 mg/dL (7-18) H 01/08/24 06:09 Creatinine 0.99 mg/dL (0.70-1.30) 01/08/24 06:09 Est GFR (MDRD) Af Amer 101 mL/min (>60) 01/08/24 06:09 Est GFR (MDRD) Non-Af 83 mL/min (>60) 01/08/24 06:09 BUN/Creatinine Ratio 46.4 RATIO (10-20) H 01/08/24 06:09 Glucose 295 mg/dL (74-106) H 01/08/24 06:09 Microbiology Microbiology: Microbiology 01/07/24 17:48 Blood Culture (Wb) - Anticubital Left Blood Culture - Preliminary 01/07/24 17:48 Blood Culture (Wb) - Right Forearm Blood Culture - Preliminary 01/07/24 21:00 Mucosa - Nasopharyngeal Respiratory Panel (PCR) - Final 01/07/24 16:23 Urine, Clean Catch Legionella Antigen - Final 01/07/24 16:23 Urine, Clean Catch Streptococcus pneumoniae Antigen (M - Final 01/07/24 20:30 Nasal Secretion SARS-CoV-2 Antigen (Rapid) - Final Dosing Weight Weight used for dosin kg Estimated Creatinine Clearance Estimated Creatinine Clearance: ~90 Goal Trough Goal Trough: 15-20 mcg/mL Pharmacy Plan for Drug Dosing Pharmacy Plan for Drug Dosing: Vancomycin 2000 mg IV x 1 followed by 1750 mg IV Q12H Pharmacy Service will continue to monitor and adjust dosing as required. Follow-Up Labs Follow-Up Labs: Trough: Vancomycin Date/Time Labs Ordered Labs to be done on [date and time ordered]: 01/10/24 @ 0030
--- NOTE | 2024-01-08 13:09 | CON.PCM.CC_ITS ---
Assessment & Plan Assessment/Plan (1) Sepsis: PLAN: Plan RECOMMENDATIONS: 1. Agree with broad-spectrum antimicrobials. 2. Obtain surface echocardiogram. 3. Obtain liver ultrasound. 4. Await follow-up chest x-ray and arterial blood gas. 5. Check lactate level. BNP is pending. 6. Patient to be n.p.o. for now. IMPRESSIONS: 1. Sepsis The patient presented to the hospital with sepsis due to gram-positive bacteremia with acute sepsis related organ dysfunction as evidenced by hyperbilirubinemia. Given his gram-positive bacteremia, agree with empiric antibiotics as ordered. Surface echocardiogram is currently pending. At the present time, the patient is hemodynamically stable, without the need for vasopressor support. Continue current supportive care. In light of the patient's hyperbilirubinemia, will obtain liver ultrasound. Repeat chest x-ray is currently pending. 2. Encephalopathy Most likely toxic/metabolic in etiology. The patient does have reported history of substance dependency, but it is not entirely clear when he last used. Therefore, an acute withdrawal syndrome is a possibility as well. If the patient remains significantly agitated, will initiate Precedex therapy. 3. Acute kidney injury Prerenal in etiology in the setting of intravascular volume depletion related to sepsis and hyperglycemia. The patient's creatinine has normalized with volume expansion. Continue to monitor urine output. No current indication for renal replacement therapy. 4. Anemia/thrombocytopenia Continue to monitor blood counts daily. Transfuse if hemoglobin drops below 7 g/dL. 5. Uncontrolled diabetes mellitus Continue basal and sliding scale insulin coverage for now. No evidence of DKA at the present time. Continue supplemental IV fluid hydration. This note was generated with [employer] dictation software. It may contain incorrect words, spelling, and punctuation that were not noted in checking the note before signing. HPI Consult Data Date of Consult: 01/08/24 HPI Narrative Reason for Consultation: Sepsis HPI Narrative: The patient is a 53-year-old male, with a history as outlined below, who presented to the emergency department on the evening of January 06 with generalized malaise and hyperglycemia. The patient does have a known history of diabetes mellitus, on metformin as an outpatient. He was initially reporting the presence of polyuria and polydipsia as well. 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 The patient denied a drinking history to me. On presentation to the emergency department, the patient was documented to be afebrile and hemodynamically stable. He was maintaining appropriate oxygen saturations on room air. Initial laboratory evaluation revealed a white blood cell count of 16,000. Chemistry profile was notable for a sodium of 124, chloride of 90, BUN of 72 and creatinine of 1.6. Glucose was elevated at 490. Hemoglobin A1c was noted to be 10.8. Lactate was normal at 0.6. Total bilirubin was increased at 1.7. Although TSH was low, free T4 was within normal limits. Urine toxicology screen was negative. Alcohol level was negative. Serum acetone level was negative. Initial chest x-ray was unremarkable. The patient was initially admitted to the medical surgical floor where he was managed with long-acting insulin and supplemental IV fluid hydration. Antibiotics were initially held, as there was no definitive source of infection and the patient was afebrile. Last evening, the patient became more confused and agitated after arriving to the medical floor. Therefore, the patient was placed empirically on Levaquin. Blood cultures were obtained. Respiratory viral panel was negative. Over the course of today, the patient has continued to worsen from a clinical perspective. He remains tachycardic and tachypneic. Blood cultures were found to be positive for gram-positive cocci in chains. Strep and urine Legionella antigens were negative. Antimicrobials were broadened to vancomycin and Zosyn. The patient was transferred to the medical intensive care unit to be more closely monitored. The patient is ill in appearance and not able to answer any significant questions. He does report a history of drug use, but is unable to confirm what and when he last used. [facility] Medical History (Updated 01/08/24 @ 13:[address] 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 Smoking Status: Current every day smoker tobacco type: cigarettes and smokeless tobacco alcohol intake: never substance use type: does not use Physical Exam Const alert General Appearance: lethargic and ill appearing HEENT normocephalic and head/scalp atraumatic Eyes PERRL, EOMs intact bilaterally and conjunctivae normal Neck supple General: trachea midline Chest inspection of chest normal Resp Effort and Inspection: tachypneic Auscultation: rhonchi and diminished lung sounds Cardio S1 normal heart sound and S2 normal heart sound Rate: tachycardic GI normal to inspection, nondistended, normoactive bowel sounds Extremity no clubbing, cyanosis or edema Skin no rashes or lesions noted Neuro CN's II-XII intact bilaterally and no focal motor deficits Psych Mood & Affect: flat affect Lab / Micro Data 01/08/24 06:09 01/08/24 06:09 Labs: Laboratory Results - last 24 hr 01/07/24 15:47: WBC 16.0 H, RBC 4.12 L, Hgb 11.8 L, Hct 34.3 L, MCV 83.3, MCH 28.6, MCHC 34.4, RDW Std Deviation 43.0, RDW Coeff of Yassine 14.1, Plt Count 123 L, MPV 11.1, Immature Gran % (Auto) 2.900 H, Neut % (Auto) 78.2 H, Lymph % (Auto) 5.2 L, [place] % (Auto) 13.2 H, Eos % (Auto) 0.2, Baso % (Auto) 0.3, Absolute Neuts (auto) 12.5 H, Absolute Lymphs (auto) 0.83, Nucleated RBC % 0, Differential Comment SEE COMMENT, Diff Path Review Reviewed, Platelet Estimate SLT DEC, RBC Morphology N CHROM, Anisocytosis RARE, Sodium 124 L, Potassium 3.8, Chloride 90 L, Carbon Dioxide 23.0, Anion Gap 11, BUN 72 H, Creatinine 1.61 H, Estim Creat Clear Calc 54.06, Est GFR (MDRD) Af Amer 58 L, Est GFR (MDRD) Non-Af 48 L, B UN/Creatinine Ratio 44.7 H, Glucose 490 H*, Hemoglobin A1c 10.8 H, Calcium 9.9, Total Bilirubin 1.70 H, AST 22, ALT 30, Alkaline Phosphatase 183 H, Total Protein 6.7, Albumin 2.0 L, Globulin 4.7 H, Albumin/Globulin Ratio 0.4 L, Acetone Level NEGATIVE 01/07/24 15:50: POC Glucose 439 H 01/07/24 16:16: Lactic Acid 0.6 01/07/24 16:23: Urine Color Yellow, Urine Clarity Clear, Urine pH 6.0, Ur Specific [place] 1.010, Urine Protein 15 H, Urine Glucose (UA) 1000 H, Urine Ketones Negative, Urine Occult Blood 25 H, Urine Nitrite Negative, Urine Bilirubin Negative, Urine Urobilinogen Normal, Ur Leukocyte Esterase Negative, Urine RBC 0 SEEN, Urine WBC 0 SEEN, Ur Squamous Epith Cells 0 SEEN, Urine Bacteria 1+, Urine Mucus 0 SEEN, Urine Opiates Screen NEGATIVE, Urine Methadone Screen NEGATIVE, Ur Barbiturates Screen NEGATIVE, Ur Phencyclidine Scrn NEGATIVE, Ur Amphetamines Screen NEGATIVE, MDMA (Ecstasy) Screen NEGATIVE, U Benzodiazepines Scrn NEGATIVE, Urine Cocaine Screen NEGATIVE, U Cannabinoids Screen NEGATIVE, Ur Drug Screen Comment 01/07/24 16:40: POC Glucose 431 H 01/07/24 18:10: POC Glucose 372 H 01/07/24 20:25: POC Glucose 284 H 01/07/24 22:12: Ethyl Alcohol < 3.0 01/07/24 22:40: POC Glucose 226 H 01/08/24 01:59: POC Glucose 305 H 01/08/24 05:49: POC Glucose 278 H 01/08/24 06:09: WBC 15.3 H, RBC 3.90 L, Hgb 11.0 L, Hct 32.8 L, MCV 84.1, MCH 28.2, MCHC 33.5, RDW Std Deviation 43.2, RDW Coeff of Yassine 14.0, Plt Count 118 L, MPV 11.4, Immature Gran % (Auto) CERTIFIED RECREATIONAL THERAPIST, Neut % (Auto) CERTIFIED RECREATIONAL THERAPIST, Lymph % (Auto) CERTIFIED RECREATIONAL THERAPIST, [place] % (Auto) CERTIFIED RECREATIONAL THERAPIST, Eos % (Auto) CERTIFIED RECREATIONAL THERAPIST, Baso % (Auto) CERTIFIED RECREATIONAL THERAPIST, Absolute Neuts (auto) 13.6 H, A bsolute Lymphs (auto) 0.49 L, Total Counted 100, Neutrophils % (Manual) 88 H, Band Neutrophils % 5, Lymphocytes % (Manual) 5 L, Metamyelocytes % 1, P romyelocytes % 1 H, Nucleated RBC % 0, Diff Path Review May foll, Platelet Estimate SLT DEC, ESR 86 H, Sodium 131 L, Potassium 3.5, Chloride 95 L, Carbon Dioxide 25.0, Anion Gap 11, BUN 46 H, Creatinine 0.99, Estim Creat Clear Calc 89.57, Est GFR (MDRD) Af Amer 101, Est GFR (MDRD) Non-Af 83, BUN/Creatinine Ratio 46.4 H, Glucose 295 H, Calcium 10.0, Phosphorus 1.6 L, Magnesium 1.8, T otal Bilirubin 3.80 H, AST 26, ALT 25, Alkaline Phosphatase 180 H, C-React Prot Ext Range 241.00 H, Total Protein 6.1 L, Albumin 1.7 L, Globulin 4.4 H, A lbumin/Globulin Ratio 0.4 L, Procalcitonin 33.55 H, TSH 0.26 L, Free T4 1.24, F ree T3 pg/dL 1.1 L 01/08/24 11:13: POC Glucose 268 H 01/08/24 12:00: Urine Color Yellow, Urine Clarity Clear, Urine pH 6.0, Ur Specific [place] 1.015, Urine Protein 100 H, Urine Glucose (UA) 250 H, Urine Ketones 15 H, Urine Occult Blood 25 H, Urine Nitrite Negative, Urine Bilirubin 3 H, Urine Urobilinogen 8 H, Ur Leukocyte Esterase 25 H, Urine RBC 0-5 SEEN, Urine WBC 0-5 SEEN, Ur Squamous Epith Cells 0-5 SEEN, Urine Bacteria 1+, Urine Mucus 0 SEEN Micro: Microbiology 01/07/24 17:48 Blood Culture (Wb) - Anticubital Left Blood Culture - Preliminary 01/07/24 17:48 Blood Culture (Wb) - Right Forearm Blood Culture - Preliminary 01/07/24 21:00 Mucosa - Nasopharyngeal Respiratory Panel (PCR) - Final 01/07/24 16:23 Urine, Clean Catch Legionella Antigen - Final 01/07/24 16:23 Urine, Clean Catch Streptococcus pneumoniae Antigen (M - Final 01/07/24 20:30 Nasal Secretion SARS-CoV-2 Antigen (Rapid) - Final ABG Data ABG results: ABG 01/07/24 15:55 Specimen Type FELTON Sample Site Not entered VBG pH 7.44 H VBG pO2 54 H VBG HCO3 24 VBG Total CO2 25 VBG O2 Sat (Calc) 89 H VBG Base Excess 0 POC Mix VBG pCO2 Pt Tmp 35.3 L O2 Delivery Device Not entered Rhythm Strip Rhythm Strip: Sinus Tach Rate: 109 Ectopy: None Imaging Radiology Impression Chest X-Ray 01/07/24 16:00 IMPRESSION: Normal x-ray examination of the chest. Electronically Signed: Jono Dorsey MD at 16:12 EDT , Chest X-Ray 01/08/24 05:55 IMPRESSION: Increased linear markings at the left lung base suggestive of left basilar atelectasis. Electronically Signed: Israel Cote MD at 8:14 EDT , Sepsis Attestation Sepsis Attestation: Agree w/Sepsis Possible Source of Sepsis: Other (Bacteremia) Sepsis Organ Dysfunction Criteria Present: Total Bilirubin > 2 mg/dl Charges/Coding Visit Charges Inpatient E&M: 86018 Init Hosp L3
--- NOTE | 2024-01-08 13:17 | US_ITS ---
INDICATION: Hyperbili EXAMINATION: Ultrasound US Abdomen Limited (quadrant) TECHNIQUE: Manrique scale and color doppler imaging was performed of the right upper quadrant. COMPARISON: None FINDINGS: LIVER: 21.8cm Diffuse increased echogenicity. No focal hepatic lesion. There is no free fluid. GALLBLADDER AND BILIARY TREE: Mildly distended gallbladder. No shadowing gallstone. Possible, minimal layering gallbladder sludge. No Pericholecystic fluid or gallbladder wall thickening is demonstrated.The proximal common bile duct measures 3 mm, which is within normal limits for the patient''s age. Songraphic Watts''s sign: None PANCREAS: No focal abnormality is demonstrated in the pancreas. No pancreatic ductal dilatation. Portion of the pancreatic tail is obscured by bowel gas. RIGHT KIDNEY: 13.4 cm in length. No hydronephrosis. No shadowing nephrolithiasis. Normal cortical echogenicity without focal thinning or scarring. No evidence of cystic or solid mass. US/Liver IMPRESSION: Hepatic steatosis and hepatomegaly Mild gallbladder distention with suggestion of minimal layering sludge. Pancreatic tail is obscured by bowel gas, limiting exam Electronically Signed: Jon Gold MD at 22:11 EDT ,
--- NOTE | 2024-01-08 13:17 | NURSING ---
report given to sabino commercial horticulture instructor with no questions voiced. family aware of transfer.
--- NOTE | 2024-01-08 13:19 | CASEMGMT ---
Social Work- Pt unable to engage in conversation; unable to discuss self pay needs. SW to follow. JEWEL Saba
--- NOTE | 2024-01-08 13:22 | NURSING ---
pt transported to icu on tele monitoring, cspo2 with dip tanker and dr. killian.
--- NOTE | 2024-01-08 13:26 | PCM.PN.HOSP ---
Reason for Visit Reason for Visit: Diagnoses Anemia, unspecified (01/07/24) Thrombocytopenia, unspecified (01/07/24) Elevated white blood cell count, unspecified (01/07/24) Other disorders of bilirubin metabolism (01/07/24) Tachycardia, unspecified (01/07/24) Hyperglycemia, unspecified (01/07/24) Other specified abnormal findings of blood chemistry (01/07/24) Subjective Subjective Patient short of breath and having difficulty answering questions due to shortness of breath and patient agitated Objective Data Objective Data Vital Signs: Vital Signs Temp Pulse Resp BP Pulse Ox O2 Del Method 101.2 F H 120 H 30 H 122/55 H 91 Room Air 01/08/24 12:54 01/08/24 12:54 01/08/24 12:54 01/08/24 12:54 01/08/24 12:54 01/08/24 12:54 Oxygen Delivery Method Room Air Weight: 83 kg Body Mass Index (BMI) 27.7 Intake & Output: Intake and Output for Last 24 Hours 01/06/24 01/07/24 01/08/24 23:59 23:59 23:59 Intake Total 1999 1835 / 1835 Output Total 425 / 425 Balance 1999 1410 / 1410 Lab / Micro Data 01/08/24 06:09 01/08/24 06:09 Labs: Laboratory Results - last 24 hr 01/07/24 15:47: WBC 16.0 H, RBC 4.12 L, Hgb 11.8 L, Hct 34.3 L, MCV 83.3, MCH 28.6, MCHC 34.4, RDW Std Deviation 43.0, RDW Coeff of Yassine 14.1, Plt Count 123 L, MPV 11.1, Immature Gran % (Auto) 2.900 H, Neut % (Auto) 78.2 H, Lymph % (Auto) 5.2 L, Ralls % (Auto) 13.2 H, Eos % (Auto) 0.2, Baso % (Auto) 0.3, Absolute Neuts (auto) 12.5 H, Absolute Lymphs (auto) 0.83, Nucleated RBC % 0, Differential Comment SEE COMMENT, Diff Path Review Reviewed, Platelet Estimate SLT DEC, RBC Morphology N CHROM, Anisocytosis RARE, Sodium 124 L, Potassium 3.8, Chloride 90 L, Carbon Dioxide 23.0, Anion Gap 11, BUN 72 H, Creatinine 1.61 H, Estim Creat Clear Calc 54.06, Est GFR (MDRD) Af Amer 58 L, Est GFR (MDRD) Non-Af 48 L, BUN/Creatinine Ratio 44.7 H, Glucose 490 H*, Hemoglobin A1c 10.8 H, Calcium 9.9, Total Bilirubin 1.70 H, AST 22, ALT 30, Alkaline Phosphatase 183 H, Total Protein 6.7, Albumin 2.0 L, Globulin 4.7 H, Albumin/Globulin Ratio 0.4 L, Acetone Level NEGATIVE 01/07/24 15:50: POC Glucose 439 H 01/07/24 16:16: Lactic Acid 0.6 01/07/24 16:23: Urine Color Yellow, Urine Clarity Clear, Urine pH 6.0, Ur Specific [place] 1.010, Urine Protein 15 H, Urine Glucose (UA) 1000 H, Urine Ketones Negative, Urine Occult Blood 25 H, Urine Nitrite Negative, Urine Bilirubin Negative, Urine Urobilinogen Normal, Ur Leukocyte Esterase Negative, Urine RBC 0 SEEN, Urine WBC 0 SEEN, Ur Squamous Epith Cells 0 SEEN, Urine Bacteria 1+, Urine Mucus 0 SEEN, Urine Opiates Screen NEGATIVE, Urine Methadone Screen NEGATIVE, Ur Barbiturates Screen NEGATIVE, Ur Phencyclidine Scrn NEGATIVE, Ur Amphetamines Screen NEGATIVE, MDMA (Ecstasy) Screen NEGATIVE, U Benzodiazepines Scrn NEGATIVE, Urine Cocaine Screen NEGATIVE, U Cannabinoids Screen NEGATIVE, Ur Drug Screen Comment 01/07/24 16:40: POC Glucose 431 H 01/07/24 18:10: POC Glucose 372 H 01/07/24 20:25: POC Glucose 284 H 01/07/24 22:12: Ethyl Alcohol < 3.0 01/07/24 22:40: POC Glucose 226 H 01/08/24 01:59: POC Glucose 305 H 01/08/24 05:49: POC Glucose 278 H 01/08/24 06:09: WBC 15.3 H, RBC 3.90 L, Hgb 11.0 L, Hct 32.8 L, MCV 84.1, MCH 28.2, MCHC 33.5, RDW Std Deviation 43.2, RDW Coeff of Yassine 14.0, Plt Count 118 L, MPV 11.4, Immature Gran % (Auto) BACKUP ADMINISTRATIVE COORDINATOR, Neut % (Auto) BACKUP ADMINISTRATIVE COORDINATOR, Lymph % (Auto) BACKUP ADMINISTRATIVE COORDINATOR, Ralls % (Auto) BACKUP ADMINISTRATIVE COORDINATOR, Eos % (Auto) BACKUP ADMINISTRATIVE COORDINATOR, Baso % (Auto) BACKUP ADMINISTRATIVE COORDINATOR, Absolute Neuts (auto) 13.6 H, Absolute Lymphs (auto) 0.49 L, Total Counted 100, Neutrophils % (Manual) 88 H, Band Neutrophils % 5, Lymphocytes % (Manual) 5 L, Metamyelocytes % 1, Promyelocytes % 1 H, Nucleated RBC % 0, Diff Path Review October, Platelet Estimate SLT DEC, ESR 86 H, Sodium 131 L, Potassium 3.5, Chloride 95 L, Carbon Dioxide 25.0, Anion Gap 11, BUN 46 H, Creatinine 0.99, Estim Creat Clear Calc 89.57, Est GFR (MDRD) Af Amer 101, Est GFR (MDRD) Non-Af 83, BUN/Creatinine Ratio 46.4 H, Glucose 295 H, Calcium 10.0, Phosphorus 1.6 L, Magnesium 1.8, Total Bilirubin 3.80 H, AST 26, ALT 25, Alkaline Phosphatase 180 H, C-React Prot Ext Range 241.00 H, Total Protein 6.1 L, Albumin 1.7 L, Globulin 4.4 H, Albumin/Globulin Ratio 0.4 L, Procalcitonin Cancelled, TSH 0.26 L, Free T4 1.24, Free T3 pg/dL 1.1 L 01/08/24 11:13: POC Glucose 268 H 01/08/24 12:00: Urine Color Yellow, Urine Clarity Clear, Urine pH 6.0, Ur Specific [place] 1.015, Urine Protein 100 H, Urine Glucose (UA) 250 H, Urine Ketones 15 H, Urine Occult Blood 25 H, Urine Nitrite Negative, Urine Bilirubin 3 H, Urine Urobilinogen 8 H, Ur Leukocyte Esterase 25 H, Urine RBC 0-5 SEEN, Urine WBC 0-5 SEEN, Ur Squamous Epith Cells 0-5 SEEN, Urine Bacteria 1+, Urine Mucus 0 SEEN Micro: Microbiology 01/07/24 17:48 Blood Culture (Wb) - Anticubital Left Blood Culture - Preliminary 01/07/24 17:48 Blood Culture (Wb) - Right Forearm Blood Culture - Preliminary 01/07/24 21:00 Mucosa - Nasopharyngeal Respiratory Panel (PCR) - Final 01/07/24 16:23 Urine, Clean Catch Legionella Antigen - Final 01/07/24 16:23 Urine, Clean Catch Streptococcus pneumoniae Antigen (M - Final 01/07/24 20:30 Nasal Secretion SARS-CoV-2 Antigen (Rapid) - Final ABG Data ABG results: ABG 01/07/24 15:55 Specimen Type FELTON Sample Site Not entered VBG pH 7.44 H VBG pO2 54 H VBG HCO3 24 VBG Total CO2 25 VBG O2 Sat (Calc) 89 H VBG Base Excess 0 POC Mix VBG pCO2 Pt Tmp 35.3 L O2 Delivery Device Not entered Radiography Diagnostic Testing: Radiology Impression Chest X-Ray 01/07/24 16:00 IMPRESSION: Normal x-ray examination of the chest. Electronically Signed: Jono Dorsey MD at 16:12 EDT , Chest X-Ray 01/08/24 05:55 IMPRESSION: Increased linear markings at the left lung base suggestive of left basilar atelectasis. Electronically Signed: Israel Cote MD at 8:14 EDT , Chest X-Ray 01/08/24 13:05 IMPRESSION: Residual linear atelectasis at the left lung base although there has been improvement as compared to prior study. Electronically Signed: Israel Cote MD at 13:20 EDT , Rhythm Strip Rhythm Strip: Sinus Tach Rate: 109 Ectopy: None Physical Exam Narrative General: Awake, appears distressed HEENT: Atraumatic, normocephalic Eyes: Anicteric, normal conjunctiva, extraocular movements grossly intact Neck: Supple, some swelling on left upper anterior chest Respiratory: Increased respiratory effort with some transmitted upper airway sounds Cardiovascular: Regular rate, tachycardic GI: Soft, nontender, nondistended Extremities: No edema Musculoskeletal: Moving all extremities Neuro: No overt focal neurological deficits Skin: Reported falling on knees this appears consistent without Psych: Difficulty cooperating, patient agitated Assessment & Plan Assessment/Plan (1) Sepsis: PLAN: Plan #Sepsis with GPC bacteremia- unclear source -Patient had denied any focal complaints on presentation given his mental status today patient had difficulty answering any direct questions, had reported to staff that at some point he fell and it seems he landed on knees and might of hit his left upper chest wall area, also has some chronic back pain -UA unremarkable -White blood cell count 15.3 with left shift, 16 yesterday -Platelets down trended to 118 -ESR 86 and CRP over 200 with a Pro-Lopez greater than 30 -UA does not appear infected, CXR unrevealing -2/2 blood cultures positive gram positive cocci in chains -Elevated bilirubin -Will get soft tissue US of swelling on left anterior chest wall -With elevated bili checking liver ultrasound -Pt transferred to ICU and printed products assembler consulted, additionally ID consulted given gram-positive bacteremia with unclear source and significant decompensation -Pt received IVF last night and this AM, not presently hypotensive -Echo ordered given gram-positive bacteremia #Acute metabolic encephalopathy -Likely 2/2 #1 -Treat underlying infection -There is also question of recent substance use and it is possible patient could be withdrawing leading to a confused picture that we do know definitively the patient does have infection #Increased SOB -Patient tachypneic however chest x-ray fairly unremarkable -Echo ordered -ABG without hypercapnia but did have low PaO2 and actually a low pCO2 likely secondary to hyperventilation so patient was alkalotic, patient placed on BiPAP to help with work of breathing -Very mildly elevated BNP, echo ordered # History of substance use -History of heroin use, reportedly not recently using however do not know this definitively and patient unable to answer questions well at time of my exam -Significant other was not sure if patient could have used any fentanyl which would not show up on UDS -Suspect picture largely due to sepsis however cannot rule out component of withdraw causing mixed picture -Patient started on Precedex due to agitation # Uncontrolled type 2 diabetes mellitus -No evidence of DKA, basal insulin and sliding scale insulin -A1c 10.8 #Suspect DIVINE on admission -BUN 72 and creatinine 1.61 on presentation -Patient received significant amount of IV fluids, BUN 46 and creatinine 0.99 #DVT ppx: Lovenox subcu Lydia Muñiz MD Time spent in the patient's overall evaluation,decision-making process, review of diagnostic data, adjustment of management, discussion with other providers, nursing nursing and ancillary staff involved in patient's care documentation, 55 minutes Charges/Coding Visit Charges Inpatient E&M: 05922 Subs Hosp L3
[2024-01-08 13:34] LABS: Allen Test Positive; Base Excess 4 mmol/L (-2 to +2); Bicarbonate 25.1 mmol/L (22-26); Blood Gas Specimen Type ART; Mode Not entered; O2 Delivery Device Cannula; PO2 56 mmHG (75-100); SITE L Radial; SO2 94 % (95-99); Total Carbon Dioxide 26 mmol/L; pH 7.59 (7.35-7.45)
[2024-01-08 13:46] LABS: Lactic Acid 1.6 mmol/L (0.4-1.9)
[2024-01-08 13:52] LABS: BNP,B-Type NATRIURETIC PEPTIDE 150.5 pg/mL (0-100)
[2024-01-08] MEDS: dexMEDEtomidine 400 MCG in 0.9% Normal Saline (100mL Bag) 96 ML 10.4 MCG CONT INF (14:26)
--- NOTE | 2024-01-08 14:28 | NURSING ---
insulin pens and wallet in biobag handed to icu techEDELMIRA gallo
[2024-01-08 14:39] LABS: Procalcitonin 31.31 ng/mL (0.00-0.09)
[2024-01-08 16:53] LABS: Bedside Glucose 247 mg/dL (74-106)
[2024-01-08] MEDS: Dexmedetomidine 1,000 mcg in 0.9% NS 240 mL 30 MCG CONT INF (17:36)
--- NOTE | 2024-01-08 18:02 | CT_ITS ---
INDICATION: left shoulder pain post fall, cannot r/o ifxn EXAMINATION: CT BONE - CT Upper Extremity W/O Contrast Injection TECHNIQUE: Helically acquired images were obtained of the left shoulder. 2-D reformats were performed by the technologist. A radiation dose optimization technique was used for this scan. IV Contrast dosage and agent: None. COMPARISON: CT chest on same day.. FINDINGS: SOFT TISSUES: Anterior left chest wall subcutaneous emphysema partially seen, on better assessed on CT chest. Multiple small left supraclavicular lymph nodes.. No radiopaque foreign body. BONES/JOINTS: No acute fracture or subluxation. Normal glenohumeral and acromioclavicular alignment. Preservation of the joint space with mild glenohumeral osteophyte formation and acromioclavicular osteophyte formation. No sclerotic or destructive changes. CT/Extremity Upper without Contra IMPRESSION: Mild glenohumeral and acromioclavicular osteoarthritis. No evidence of acute injury. Partially seen left anterior chest wall subcutaneous emphysema better assessed on CT chest. Electronically Signed: Jon Gold MD at 23:19 EDT Reading Location ID and State: [facility] / [place] Tel , Service support ,
--- NOTE | 2024-01-08 18:02 | CT_ITS ---
INDICATION: neck pain EXAMINATION: CT CERVICAL SPINE - CT Spine Cervical W/O Contrast Injection TECHNIQUE: Helically acquired images were obtained of the cervical spine. 2D reformatted images were reviewed. A radiation dose optimization technique was used for this scan. IV Contrast dosage and agent: None. COMPARISON: None. FINDINGS: VERTEBRAE: No fracture or acute compression deformity. No discrete lytic or blastic abnormality. Degenerative reversal of the normal cervical lordosis without listhesis. Mild diffuse facet arthropathy. Normal craniocervical junction and cervicothoracic junction. DISCS and SPINAL CANAL: Diffuse disc height loss most prominent C3-C4 with small posterior disc osteophyte complex causing mild spinal canal stenosis and severe left neural foraminal narrowing. NECK SOFT TISSUES: Diffuse prevertebral soft tissue thickening. Unremarkable thyroid. Lung apices are clear. There is no cervical adenopathy. Endotracheal tube partially seen. LUNG APICES: Clear. CT/Spine Cervical without Contras IMPRESSION: Diffuse prevertebral soft tissue thickening of uncertain etiology. Consider CT neck with IV contrast when clinically able better evaluate for prevertebral soft tissue abscess or pharyngeal inflammation. No evidence of acute cervical spinal fracture or spondylolisthesis. Spondylosis as above. Electronically Signed: Jon Gold MD at 22:36 EDT ,
--- NOTE | 2024-01-08 18:02 | CT_ITS ---
We are attempting to reach an attending provider to discuss findings. An addendum with communication details will be sent when the communication is complete. STUDY: CT CHEST, ABDOMEN T PELVIS WITH CONTRAST REASON FOR EXAM: Male, 53 years old. soft tissue swelling left upper anterior chest wall RADIATION DOSAGE (If Supplied By Facility): CTDIvol = ( 18.20 ) mGy, DLP = ( 2192.16 ) mGycm TECHNIQUE: Transaxial imaging of the chest abdomen pelvis with coronal and sagittal reformats was performed following intravenous administration of IV 100mL Isovue-300. Individualized dose optimization techniques were used for this CT. COMPARISON: Noncontrast CT cervical spine on same day FINDINGS: MUSCULOSKELETAL Left sternocleidomastoid muscle thickening with intramuscular emphysema. Similar subcutaneous emphysema and thickening of the left anterior pectoralis muscle thickening with emphysema with overlying subcutaneous soft tissue edema. Fat stranding extends deep, just cephalad to the sternum, sagittal image 196 without drainable fluid collection. Mild left supraclavicular subcentimeter adenopathy. CHEST Endotracheal tube tip is above the lee. Diffuse fluid stranding within the anterior mediastinum subcentimeter scattered lymph nodes. Partially seen prevertebral soft tissue edema. Diffuse edema within these mediastinum with underlying ill-defined small lymph nodes. No bulky hilar adenopathy. Unremarkable esophagus. No endobronchial lesion. Unremarkable pulmonary outflow tract for pulmonary angiogram exam. Aortic atherosclerosis without dissection or ectasia. No cardiomegaly or pericardial effusion. Severe multivessel calcified coronary atherosclerosis. Mild dependent atelectasis. No pleural effusion or pneumothorax. ABDOMEN PELVIS Unremarkable gallbladder homogeneous enlarged liver without discrete mass. Homogeneous splenomegaly without discrete mass. Unremarkable adrenals, pancreas, left kidney. Right renal 1. Subcentimeter cysts, no imaging follow-up required. No hydronephrosis or perinephric inflammation. No acute gastric finding. No small bowel distention or focal wall thickening. Appendix is enlarged 1 cm with mild surrounding inflammatory stranding, axial image 87. Scattered distal colonic diverticulosis without evidence of diverticulitis. Aguayo catheter decompresses the bladder. Abdominal aortic atherosclerosis without ectasia. No free fluid, free air, or adenopathy. CT/CT Chest, Abd, Pel w/Contrast IMPRESSION: Findings concerning for descending pharyngitis and superior mediastinitis. CT neck with IV contrast may be beneficial to exclude retropharyngeal abscess. Edema and emphysema within left sternocleidomastoid muscle and left pectoralis muscle concerning for myositis in the absence of recent instrumentation. 1 cm appendix with mild surrounding edema concerning for acute appendicitis. Primary differential is mucocele with incidental surrounding stranding. Surgical consultation recommended. Hepatosplenomegaly. Electronically Signed: Jon Gold MD at 23:35 EDT ,
--- NOTE | 2024-01-08 18:40 | NURSING ---
Transferred patient out of room to go to CT, before leaving the floor, patient alarmed asystole. Patient had palpable thready radial pulse. Precedex stopped. Monitor showed HR 27. Transferred patient back to 201. Deep oral suctioned for moderate amount of white thick sputum. Patient woke up agitated, this RN reoriented patient. HR in 90s. Placed back on bipap. Dr. Muñiz notified. Waiting to obtain CT at this time.
--- NOTE | 2024-01-08 18:51 | NURSING ---
When patient woke up, he was very confused. Was not aware of date, time, or situation. This RN reoriented patient, educated on series of events. Patient stated he did not remember talking to his SO, Malcolm, this evening. This RN asked patient if he has a history of alcohol use or drug use. Patient states he never drinks then became very defensive regarding drug use. Patient said, well what did my say? This RN said his SO was unaware if he had used anything and this nurse explained it is important to know of anything he may have used in order to properly care for him. Patient became silent and refused to answer any questions.
--- NOTE | 2024-01-08 19:01 | PCM.HOSP.N ---
Hospitalist Note Left upper chest wall swelling noted, initially ordered ultrasound to see if any fluid pocket however it was deemed there is not a focal enough area for evaluation and CT was recommended. Family came in and endorsed patient having shoulder, anterior chest wall, and neck pain over the past week which she had not endorsed initially and also about a month ago but had some abdominal pain. Additionally patient now growing strep anginosus. Given organism and lack of source plan for CT neck, shoulder, chest to evaluate the soft tissue and abdomen planned. Attempted to take patient down however he decompensated in the hallway and had to be taken back to ICU. Will work to optimize patient medically so he can be safely scanned as we still do not have a definitive source, in the meantime monitor closely in ICU and continue IV antibiotics. Air Moving Technician and infectious disease consulted. Liver ultrasound and echo pending. Additionally family at bedside report the patient may be using substances and this cannot be ruled out so it is possible still that mental status and picture is slightly confounded by possible withdrawal. Presently on BiPAP and Precedex for agitation
--- NOTE | 2024-01-08 20:20 | CPS ---
There was not enough blood sample in Venous gas to rerun verification for critical value of paO2 18.[address] Ibarra notified.
[2024-01-08 20:24] LABS: Blood Gas Specimen Type VEN; Comment 14/10; O2 Delivery Device BiPAP; PEEP 10; RR 14; SITE L Radial; VBG BASE EXCESS 2 mmol/L (-1.0-3.5); VBG Bicarbonate 26 mmol/L (22-26); VBG PO2 19 mmHg (25-40); VBG SO2 32 % (50-70); VBG TCO2 27 mmol/L (23-33); VBG pCO2 36.5 mmHg (41-51); VBG pH 7.46 (7.32-7.42)
[2024-01-08] MEDS: fentaNYL 100 MCG/2 ML Ampul IV (20:30)
[2024-01-08] MEDS: Etomidate 20 MG/10 ML Vial IV (20:30)
[2024-01-08] MEDS: Propofol 10MG/Ml 1,000 MG/100 ML Bottle 5.1 MG CONT INF (20:35)
--- NOTE | 2024-01-08 20:35 | PCM.OP.PRO ---
Procedure Report Date of Procedure: 01/08/24 Intubation Indication: Respiratory distress Consent was obtained from: Emergent The patient was placed in the appropriate sniffing position. The patient had continuous cardiac as well as pulse oximetry monitoring during the procedure. Procedure sedation was provided by the administration of 50 mcg of fentanyl and 20 mg of etomidate. Direct laryngoscopy was then performed using a number 4 Daily blade, which revealed a grade a view. A 7.5 mm endotracheal tube was visualized advancing between the cords to the level of 24 cm at the lip. The stylette was then removed and discarded. Tube placement was confirmed by fogging in the tube along with equal and bilateral breath sounds. Colorimetric change was visualized on the CO2 meter. The cuff was then inflated and the tube secured using a commercially available device. A good pulse oximetry waveform was seen on the monitor throughout the procedure. A portable chest x-ray has been ordered to confirm appropriate placement. The patient tolerated the procedure well. Procedures Hospitalists Procedures: [id number] Insert Emergency Airway
--- NOTE | 2024-01-08 20:37 | PN.HOSP_ITS ---
Hospitalist Note Patient's respiratory status decompensated. Preintubation VBG showed marked alkalosis. Respiratory rate was anywhere from 30-40 and patient becoming more hypoxic and obtunded. Intubated emergently at the bedside without difficulty. Sputum culture sent. Vent orders with 1 hour follow-up ABG ordered. Chest x- ray and KUB pending for OG and ET tube placement. Sedation with propofol currently as patient was having bradycardic events with Precedex.
--- NOTE | 2024-01-08 20:50 | RAD_ITS ---
INDICATION: intubation EXAMINATION/TECHNIQUE: X-RAY - XR Chest 1 View COMPARISON: January 08, 2024. FINDINGS: LINES/DEVICES: Endotracheal tube tip 5.2 cm above the lee. LUNGS: Increased linear atelectasis in the left lung base. No consolidation, edema or effusion. No pneumothorax. MEDIASTINUM AND CARDIOVASCULAR STRUCTURES: Cardiac silhouette not enlarged. BONES AND SOFT TISSUES: Unremarkable. RAD/Chest 1 View (Portable) IMPRESSION: Endotracheal tube tip 5.2 cm above the lee. Increased linear atelectasis in the left lung base. Electronically Signed: Jon Gold MD at 21:53 EDT ,
[2024-01-08] MEDS: Pantoprazole Sodium 40 MG in 0.9% Normal Saline (100mL MB+) 100 ML 330 MG IV (22:47)
[2024-01-08] MEDS: Propofol 10MG/Ml 1,000 MG/100 ML Bottle 25.7 MG CONT INF (22:47)
[2024-01-08] MEDS: Chlorhexidine 15 ML PO (22:48)
[2024-01-08] MEDS: Piperacil/Tazobactam 3.375 GM in 0.9% Normal Saline (50mL MB+) 50 ML IV (23:16)
[2024-01-08] MEDS: fentaNYL drip 100 ML 5 MCG CONT INF (23:18)
[2024-01-08 23:19] LABS: Allen Test Positive; Base Excess 2 mmol/L (-2 to +2); Blood Gas Specimen Type ART; Mode AC; O2 Delivery Device Adult Vent; PEEP 5; PO2 92 mmHG (75-100); RR 12; SITE L Radial; SO2 98 % (95-99); Total Carbon Dioxide 26 mmol/L; pCO2 29.7 mmHg (35-45); pH 7.53 (7.35-7.45)
[2024-01-08 23:27] LABS: Bedside Glucose 261 mg/dL (74-106)
[2024-01-09] VITALS (18 sets, daily range): BP systolic 92–130; BP diastolic 58–75; PULSE 104–123; RESP 12–33; TEMP 36.8–39.5; O2SAT 30–99; BMI 27.3
--- NOTE | 2024-01-09 00:13 | CT_ITS ---
INDICATION: ABSCESS. Fall. EXAMINATION: CT NECK WITH CONTRAST - CT Soft Tissue Neck W/ Contrast Injection TECHNIQUE: Helically acquired images were obtained of the neck following IV contrast. The protocol utilizes one or more of the following dose reduction techniques: automated exposure control, adjustment of mA and/or kV according to patient size,and/or use of iterative reconstruction technique. IV Contrast dosage and agent: 75 mL Isovue-300 RADIATION DOSAGE (If Supplied By Facility): CTDIvol = ( 17.30 ) mGy, DLP = ( 592.32 ) mGycm COMPARISON: CT Cervical Spine and CT chest January 08, 2024 FINDINGS: Left sternocleidomastoid and pectoralis intramuscular edema and emphysema persists without organized fluid collection or abscess. Persistent soft tissue air just cephalad to the manubrium and sternum, unchanged from prior noncontrast CT cervical spine and CT chest. There is asymmetric widening of the left sternoclavicular joint with mild cephalad subluxation and suggestion of effusion, best seen on sagittal reformats. No active contrast extravasation. Diffuse fluid stranding throughout the superior mediastinum with diffuse anterior prevertebral soft tissue thickening. No evidence of prevertebral drainable fluid collection or abscess. Mild pharyngeal mucosal thickening . Unremarkable pharyngeal tonsils. Normal epiglottis. Parapharyngeal fat is preserved. No cervical adenopathy. Normal appearance of the salivary glands. Unremarkable thyroid Scattered mild paranasal sinus mucoperiosteal thickening scattered diffuse caries and maxillary and mandibular alveolar root odontogenic abscesses without immediate overlying soft tissue inflammation. No other acute osseous finding. CT/Soft Tissue Neck WITH Contrast IMPRESSION: Findings concerning for traumatic left sternoclavicular joint cephalad subluxation. Anterior mediastinal and anterior chest wall edema/emphysema may be traumatic in etiology. No evidence of active hemorrhage or enlarging hematoma. Diffuse prevertebral soft tissue thickening is nonspecific. Differential includes pharyngitis with inferior retropharyngeal extension of infection into the superior mediastinal. There is no evidence of retropharyngeal abscess. If there is absence of clinical infection MRI could better assess ligamentous structures of the cervical spine. No evidence of acute osseous injury of the cervical spine. Scattered dental caries and alveolar root odontogenic abscess without overlying soft tissue inflammation. Electronically Signed: Jon Gold MD at 3:02 EDT ,
[2024-01-09] MEDS: Insulin Lispro 100 UNIT/ML INSULN.PEN SC ×3 (01:25→10:52)
[2024-01-09 01:54] LABS: Bedside Glucose 252 mg/dL (74-106)
[2024-01-09] MEDS: Ipratropium/Albuterol Sulfate 3 ML AMPUL.NEB INHALATION ×3 (02:20→11:14)
[2024-01-09] MEDS: Propofol 10MG/Ml 1,000 MG/100 ML Bottle 25.7 MG CONT INF ×4 (02:35→12:56)
[2024-01-09 02:44] LABS: Allen Test Positive; Base Excess 4 mmol/L (-2 to +2); Blood Gas Specimen Type ART; Mode AC; O2 Delivery Device Adult Vent; PEEP 5; PO2 86 mmHG (75-100); RR 12; SITE L Radial; SO2 98 % (95-99); Total Carbon Dioxide 28 mmol/L; pCO2 32.7 mmHg (35-45); pH 7.53 (7.35-7.45)
[2024-01-09] MEDS: Vancomycin HCl 1,750 MG in 0.9% Normal Saline (500mL Bag) 500 ML 250 MG IV ×2 (02:46→13:08)
[2024-01-09 03:51] LABS: Basophil# 0.05 X10^3/uL; Basophil% 0.3 % (0-1); Eosinophil# 0.01 X10^3/uL; Eosinophils% 0.1 % (0-5); Hemoglobin 9.7 g/dL (13.0-16.5); Lymphocyte % 7.8 % (19-41); Mean Corp Hgb Conc 33.4 g/dL (32-36); Mean Corpuscular Hgb 28.2 pg (27.0-32.0); Mean Corpuscular Volume 84.3 fL (80-94); Mean Platelet Vol. 11.2 fl (6.2-12.0); Monocyte# 2.13 X10^3/uL; NRBC Flagged by Analyzer 0 % (0-5); Neutrophil # 14.99 X10^3/uL (2.7-7.7); Neutrophil % 77.4 % (47-70); POSITIVE DIFFERENTIAL YES; Platelet Count 135 K/mm3 (150-450); RBC Distribution Width CV 14.5 % (11.6-14.6); RBC Distribution Width SD 44.3 fl (35.1-43.9); Red Blood Count 3.44 M/mm3 (4.6-6.2); White Blood Count 19.3 K/mm3 (4.4-11.0)
[2024-01-09 04:21] LABS: ALB/GLOB Ratio 0.3 RATIO (0.9-2.4); AST(SGOT) 24 U/L (15-37); Alanine Aminotransfer ALT/SGPT 20 U/L (16-61); Albumin, Serum 1.4 g/dL (3.2-5.0); Alkaline Phosphatase 152 U/L (45-117); Anion Gap 6 (5-15); BUN 37 mg/dL (7-18); BUN/Creat Ratio 37.3 RATIO (10-20); Calcium,Total 9.1 mg/dL (8.5-10.1); Chloride 103 mmol/L (98-107); Creatinine, Serum 0.99 mg/dL (0.70-1.30); EST Glomerular Filtration Rate 83 mL/min (>60); Est Glom Filt Rate - Afr Amer 101 mL/min (>60); Estimated Creatinine Clearance 82.53 ml/min; Globulin 4.2 g/dL (2.2-4.2); Glucose 225 mg/dL (74-106); Magnesium 1.8 mg/dL (1.6-2.6); Potassium 3.6 mmol/L (3.5-5.1); Protein, Total 5.6 g/dL (6.4-8.2); Sodium Level 136 mmol/L (136-145)
[2024-01-09 04:22] LABS: Phosphorus 2.7 mg/dL (2.5-4.9)
[2024-01-09] MEDS: fentaNYL drip 100 ML 17.5 MCG CONT INF ×2 (04:35→10:01)
[2024-01-09 04:37] LABS: Differential Indicated SCAN CRITERIA MET
[2024-01-09] MEDS: Piperacil/Tazobactam 3.375 GM in 0.9% Normal Saline (50mL MB+) 50 ML IV (06:04)
--- NOTE | 2024-01-09 06:05 | PN.HOSP_ITS ---
Hospitalist Note I was contacted by radiologist who noted possible evidence of appendicitis with ~1 cm appendix so general surgery was consulted to see patient on-rounds in the AM. Also there was concern for possible parapharyngeal abscess with a dedicated CT of the neck with IV contrast also noted below. [facility] Imaging Services [address] [place] [address] CT Chest, Abd, Pel w/Contrast MR#: [id number] Acct: [id number] Name: TERENCE HAMEED Rep #: [id number] : 1970 M 53 From: Jon Gold MD PCP: Dr. Hosea Mckeon, Status: ADM IN Study: CT Chest, Abd, Pel w/Contrast Date of Exam: 01/08/24 Exam# [id number] Ordering Dr: Lydia Muñiz MD ADDENDUM by Dr. Jon Gold MD on 01/08/24 at 2335 STUDY: CT CHEST, ABDOMEN T PELVIS WITH CONTRAST REASON FOR EXAM: Male, 53 years old. soft tissue swelling left upper anterior chest wall RADIATION DOSAGE (If Supplied By Facility): CTDIvol = ( 18.20 ) mGy, DLP = ( 2192.16 ) mGycm TECHNIQUE: Transaxial imaging of the chest abdomen pelvis with coronal and sagittal reformats was performed following intravenous administration of IV 100mL Isovue-300. Individualized dose optimization techniques were used for this CT. COMPARISON: Noncontrast CT cervical spine on same day FINDINGS: MUSCULOSKELETAL Left sternocleidomastoid muscle thickening with intramuscular emphysema. Similar subcutaneous emphysema and thickening of the left anterior pectoralis muscle thickening with emphysema with overlying subcutaneous soft tissue edema. Fat stranding extends deep, just cephalad to the sternum, sagittal image 196 without drainable fluid collection. Mild left supraclavicular subcentimeter adenopathy. CHEST Endotracheal tube tip is above the lee. Diffuse fluid stranding within the anterior mediastinum subcentimeter scattered lymph nodes. Partially seen prevertebral soft tissue edema. Diffuse edema within these mediastinum with underlying ill-defined small lymph nodes. No bulky hilar adenopathy. Unremarkable esophagus. No endobronchial lesion. Unremarkable pulmonary outflow tract for pulmonary angiogram exam. Aortic atherosclerosis without dissection or ectasia. No cardiomegaly or pericardial effusion. Severe multivessel calcified coronary atherosclerosis. Mild dependent atelectasis. No pleural effusion or pneumothorax. ABDOMEN PELVIS Unremarkable gallbladder homogeneous enlarged liver without discrete mass. Homogeneous splenomegaly without discrete mass. Unremarkable adrenals, pancreas, left kidney. Right renal 1. Subcentimeter cysts, no imaging follow-up required. No hydronephrosis or perinephric inflammation. No acute gastric finding. No small bowel distention or focal wall thickening. Appendix is enlarged 1 cm with mild surrounding inflammatory stranding, axial image 87. Scattered distal colonic diverticulosis without evidence of diverticulitis. Aguayo catheter decompresses the bladder. Abdominal aortic atherosclerosis without ectasia. No free fluid, free air, or adenopathy. 01/08/24 2335 Date cc: Dr. Hosea Mckeon DO; Dr. Lydia Muñiz MD ~* Signed ADDENDUM by Dr. Jon Gold MD on 01/08/[address]/CT Chest, Abd, Pel w/Contrast IMPRESSION: Findings concerning for descending pharyngitis and superior mediastinitis. CT neck with IV contrast may be beneficial to exclude retropharyngeal abscess. Edema and emphysema within left sternocleidomastoid muscle and left pectoralis muscle concerning for myositis in the absence of recent instrumentation. 1 cm appendix with mild surrounding edema concerning for acute appendicitis. Primary differential is mucocele with incidental surrounding stranding. Surgical consultation recommended. Hepatosplenomegaly. N.B. : The above Results were Read Back by Jon Gold MD to Angelito Mays DO, and understanding confirmed on 01/09/2024 00:08:43 (ET). Electronically Signed: Jon Gold MD at 23:35 EDT Reading Location ID and State: [facility] / [place] Tel , Service support , 01/09/24 0016 Date cc: Dr. Hosea Mckeon DO; Dr. Lydia Muñiz MD ~* Signed We are attempting to reach an attending provider to discuss findings. An addendum with communication details will be sent when the communication is complete. STUDY: CT CHEST, ABDOMEN T PELVIS WITH CONTRAST REASON FOR EXAM: Male, 53 years old. soft tissue swelling left upper anterior chest wall RADIATION DOSAGE (If Supplied By Facility): CTDIvol = ( 18.20 ) mGy, DLP = ( 2192.16 ) mGycm TECHNIQUE: Transaxial imaging of the chest abdomen pelvis with coronal and sagittal reformats was performed following intravenous administration of IV 100mL Isovue-300. Individualized dose optimization techniques were used for this CT. COMPARISON: Noncontrast CT cervical spine on same day FINDINGS: MUSCULOSKELETAL Left sternocleidomastoid muscle thickening with intramuscular emphysema. Similar subcutaneous emphysema and thickening of the left anterior pectoralis muscle thickening with emphysema with overlying subcutaneous soft tissue edema. Fat stranding extends deep, just cephalad to the sternum, sagittal image 196 without drainable fluid collection. Mild left supraclavicular subcentimeter adenopathy. CHEST Endotracheal tube tip is above the lee. Diffuse fluid stranding within the anterior mediastinum subcentimeter scattered lymph nodes. Partially seen prevertebral soft tissue edema. Diffuse edema within these mediastinum with underlying ill-defined small lymph nodes. No bulky hilar adenopathy. Unremarkable esophagus. No endobronchial lesion. Unremarkable pulmonary outflow tract for pulmonary angiogram exam. Aortic atherosclerosis without dissection or ectasia. No cardiomegaly or pericardial effusion. Severe multivessel calcified coronary atherosclerosis. Mild dependent atelectasis. No pleural effusion or pneumothorax. ABDOMEN PELVIS Unremarkable gallbladder homogeneous enlarged liver without discrete mass. Homogeneous splenomegaly without discrete mass. Unremarkable adrenals, pancreas, left kidney. Right renal 1. Subcentimeter cysts, no imaging follow-up required. No hydronephrosis or perinephric inflammation. No acute gastric finding. No small bowel distention or focal wall thickening. Appendix is enlarged 1 cm with mild surrounding inflammatory stranding, axial image 87. Scattered distal colonic diverticulosis without evidence of diverticulitis. Aguayo catheter decompresses the bladder. Abdominal aortic atherosclerosis without ectasia. No free fluid, free air, or adenopathy. CT/CT Chest, Abd, Pel w/Contrast IMPRESSION: Findings concerning for descending pharyngitis and superior mediastinitis. CT neck with IV contrast may be beneficial to exclude retropharyngeal abscess. Edema and emphysema within left sternocleidomastoid muscle and left pectoralis muscle concerning for myositis in the absence of recent instrumentation. 1 cm appendix with mild surrounding edema concerning for acute appendicitis. Primary differential is mucocele with incidental surrounding stranding. Surgical consultation recommended. Hepatosplenomegaly. Electronically Signed: Jon Gold MD at 23:35 EDT , CC: Dr. Hosea Mckeon DO; Dr. Lydia Muñiz MD ~ Granulator Machine Operator: Signed [facility] Imaging Services [address] [place], [place] [id number] Soft Tissue Neck WITH Contrast MR#: [id number] Acct: [id number] Name: TERENCE HAMEED Rep #: [id number] : 1970 M 53 From: Jon Gold MD PCP: Dr. Hosea Mckeon DO Status: ADM IN Study: Soft Tissue Neck WITH Contrast Date of Exam: 01/09/24 Exam# [id number] Ordering Dr: Angelito Norman DO INDICATION: ABSCESS. Fall. EXAMINATION: CT NECK WITH CONTRAST - CT Soft Tissue Neck W/ Contrast Injection TECHNIQUE: Helically acquired images were obtained of the neck following IV contrast. The protocol utilizes one or more of the following dose reduction techniques: automated exposure control, adjustment of mA and/or kV according to patient size,and/or use of iterative reconstruction technique. IV Contrast dosage and agent: 75 mL Isovue-300 RADIATION DOSAGE (If Supplied By Facility): CTDIvol = ( 17.30 ) mGy, DLP = ( 592.32 ) mGycm COMPARISON: CT Cervical Spine and CT chest January 08, 2024 FINDINGS: Left sternocleidomastoid and pectoralis intramuscular edema and emphysema persists without organized fluid collection or abscess. Persistent soft tissue air just cephalad to the manubrium and sternum, unchanged from prior noncontrast CT cervical spine and CT chest. There is asymmetric widening of the left sternoclavicular joint with mild cephalad subluxation and suggestion of effusion, best seen on sagittal reformats. No active contrast extravasation. Diffuse fluid stranding throughout the superior mediastinum with diffuse anterior prevertebral soft tissue thickening. No evidence of prevertebral drainable fluid collection or abscess. Mild pharyngeal mucosal thickening . Unremarkable pharyngeal tonsils. Normal epiglottis. Parapharyngeal fat is preserved. No cervical adenopathy. Normal appearance of the salivary glands. Unremarkable thyroid Scattered mild paranasal sinus mucoperiosteal thickening scattered diffuse caries and maxillary and mandibular alveolar root odontogenic abscesses without immediate overlying soft tissue inflammation. No other acute osseous finding. CT/Soft Tissue Neck WITH Contrast IMPRESSION: Findings concerning for traumatic left sternoclavicular joint cephalad subluxation. Anterior mediastinal and anterior chest wall edema/emphysema may be traumatic in etiology. No evidence of active hemorrhage or enlarging hematoma. Diffuse prevertebral soft tissue thickening is nonspecific. Differential includes pharyngitis with inferior retropharyngeal extension of infection into the superior mediastinal. There is no evidence of retropharyngeal abscess. If there is absence of clinical infection MRI could better assess ligamentous structures of the cervical spine. No evidence of acute osseous injury of the cervical spine. Scattered dental caries and alveolar root odontogenic abscess without overlying soft tissue inflammation. Electronically Signed: Jon Gold MD at 3:02 EDT , CC: Dr. Angelito Norman DO; Dr. Hosea Mckeon DO ~ Granulator Machine Operator Signed
[2024-01-09 06:12] LABS: Bedside Glucose 219 mg/dL (74-106)
[2024-01-09 06:22] LABS: Differential Comment SCANNED; Erythrocyte Sedimentation Rate 82 mm/hr (0-20)
--- NOTE | 2024-01-09 08:05 | CON.PCM.SX_ITS ---
Assessment & Plan Assessment/Plan (1) Acute appendicitis: QUALIFIERS: Acute appendicitis type: unspecified acute appendicitis type Qualified Code(s): K35.80 - Unspecified acute appendicitis PLAN: I have been consulted in conjunction with Dr. Ba. She has independently evaluated this patient. Patient came in with hyperglycemia, generalized malaise and weakness. Patient quickly decompensated and was intubated. Patient's blood cultures were growing Strep anginosus and strep group C. Patient was placed on Vancomycin, Zosyn and Clindamycin to start later today. Patient's imaging indicated multiple sinuses abscesses extending to inferior retropharyngeal extension of infection into the superior mediastinum. As well as a 1 cm appendix with surrounding edema. Patient's mother, whom is next of kin, was contacted and updated on the overnight events. Dr. Ba was consulted for an appendectomy as one of the potential sources of infection. Patient's mother Cathie was explained the procedure details, risks and benefits. Patient's mother verbally agreed to proceed with the proposed procedure with the understanding that anesthesia and the orchid worker was to evaluate the patient. If either of those physicians demand the patient not fit for surgery at a smaller hospital, patient would need transferred. Patient's mother verbally understood and agreed with the plan. Patient's oropharyngeal abscess would make this procedure higher risk and would not be something that would be able to betaken care of here at this hospital. Upon further discussion, it was deemed that the patient would be better suited at a tertiary facility, where they have the speciality to be able to accomplish successfully the treatment for the parapharyngeal abscess. Patient can also have an appendectomy hopefully at the same time. Hospitalist has been updated on treatment plan and is agreeable to transfer the patient. Thank you for allowing us to participate in this patient's care. HPI Consult Data Date of Consult: 01/09/24 HPI Narrative Reason for Consultation: Abdominal pain HPI Narrative: TERENCE HAMEED, is a 53 M who presents with hyperglycemia, generalized malaise and weakness. Patient is currently intubated. All of the history is from charting and discussion with hospitalist and staff. Patient was non-compliant with his medication as an outpatient. Patient was admitted to a regular med/surg floor and then became agitated and more confused. He was placed on Levaquin. Blood cultures were found to be positive for gram-positive cocci in chains. Respiratory panel was negative. He was then transitioned to vancomycin and Zosyn. He was transferred to ICU to be more closely monitored. Patient apparently has a history of illegal drug use. Currently he is not able to confirm the last known date or substance that was used. There is suspicion from the long-time girlfriend and son that he may be using Fentanyl. Yesterday, patient continued to be agitated and more short of breath. Patient's cultures were additionally growing strep anginosus. He was noted to have left upper chest swelling. CT scan of the neck, shoulder, chest and abdomen was ordered. Patient decompensated in the hallway and was taken back to ICU. Patient was emergently intubated last night by Dr. Ibarra. CT scan results returned demonstrating a 1 cm appendix with surrounding edema. CT of the neck demonstrated Left sternocleidomastoid and pectoralis intramuscular edema and emphysema persists without organized fluid collection or abscess. Persistent soft tissue air just cephalad to the manubrium and sternum, unchanged from prior noncontrast CT cervical spine and CT chest. There is asymmetric widening of the left sternoclavicular joint with mild cephalad subluxation and suggestion of effusion, best seen on sagittal reformats. No active contrast extravasation. Diffuse fluid stranding throughout the superior mediastinum with diffuse anterior prevertebral soft tissue thickening. No evidence of prevertebral drainable fluid collection or abscess. Mild pharyngeal mucosal thickening . Unremarkable pharyngeal tonsils. Normal epiglottis. Parapharyngeal fat is preserved. No cervical adenopathy. Normal appearance of the salivary glands. Unremarkable thyroid Scattered mild paranasal sinus mucoperiosteal thickening scattered diffuse caries and maxillary and mandibular alveolar root odontogenic abscesses without immediate overlying soft tissue inflammation. No other acute osseous finding. Patient continues to be tachycardiac, tachypneic, and diaphoretic. 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 Smoking Status: Current every day smoker tobacco type: cigarettes and smokeless tobacco alcohol intake: never substance use type: does not use ROS Review of Systems ROS Unobtainable: due to endotracheal tube, due to mental condition and due to mental status Physical Exam Const Constitutional Narrative: Diaphoretic General Appearance: patient mechanically ventilated HEENT normocephalic Resp Resp Narrative: Restless Effort and Inspection: tachypneic Auscultation: wheezes inspiratory wheezes Cardio Rate: tachycardic GI GI Narrative: Abdomen- obtunded, distended, grimacing on palpation of the right lower quadrant no CVA tenderness Back/Spine no CVA tenderness Extremity normal to inspection Skin no rashes or lesions noted Neuro Sensorium / Orientation: sedated on vent Psych Attitude: agitated Activity / Motor Behavior: restless Lab / Micro Data 01/09/24 03:40 01/09/24 03:40 Labs: Laboratory Results - last 24 hr 01/07/24 15:47: Diff Path Review Reviewed 01/08/24 06:09: WBC 15.3 H, RBC 3.90 L, Hgb 11.0 L, Hct 32.8 L, MCV 84.1, MCH 28.2, MCHC 33.5, RDW Std Deviation 43.2, RDW Coeff of Yassine 14.0, Plt Count 118 L, MPV 11.4, Immature Gran % (Auto) [employer]IST, Neut % (Auto) [employer]SERV[employer] SPECIALIST, Lymph % (Auto) [employer]SERVATION SPECIALIST, [place] % (Auto) [employer]AND CONSERVATION SPECIALIST, Eos % (Auto) [employer]AND CONSERVATION SPECIALIST, Baso % (Auto) [employer]SERVATION SPECIALIST, Absolute Neuts (auto) 13.6 H, A bsolute Lymphs (auto) 0.49 L, Total Counted 100, Neutrophils % (Manual) 88 H, Band Neutrophils % 5, Lymphocytes % (Manual) 5 L, Metamyelocytes % 1, P romyelocytes % 1 H, Nucleated RBC % 0, Diff Path Review May foll, Platelet Estimate SLT DEC, ESR 86 H, Sodium 131 L, Potassium 3.5, Chloride 95 L, Carbon Dioxide 25.0, Anion Gap 11, BUN 46 H, Creatinine 0.99, Estim Creat Clear Calc 89.57, Est GFR (MDRD) Af Amer 101, Est GFR (MDRD) Non-Af 83, BUN/Creatinine Ratio 46.4 H, Glucose 295 H, Calcium 10.0, Phosphorus 1.6 L, Magnesium 1.8, T otal Bilirubin 3.80 H, AST 26, ALT 25, Alkaline Phosphatase 180 H, C-React Prot Ext Range 241.00 H, Total Protein 6.1 L, Albumin 1.7 L, Globulin 4.4 H, A lbumin/Globulin Ratio 0.4 L, Procalcitonin Cancelled, TSH 0.26 L, Free T4 1.24, Free T3 pg/dL 1.1 L 01/08/24 11:13: POC Glucose 268 H 01/08/24 12:00: Urine Color Yellow, Urine Clarity Clear, Urine pH 6.0, Ur Specific [place] 1.015, Urine Protein 100 H, Urine Glucose (UA) 250 H, Urine Ketones 15 H, Urine Occult Blood 25 H, Urine Nitrite Negative, Urine Bilirubin 3 H, Urine Urobilinogen 8 H, Ur Leukocyte Esterase 25 H, Urine RBC 0-5 SEEN, Urine WBC 0-5 SEEN, Ur Squamous Epith Cells 0-5 SEEN, Urine Bacteria 1+, Urine Mucus 0 SEEN 01/08/24 13:02: Lactic Acid 1.6, B-Natriuretic Peptide 150.5 H 01/08/24 13:43: Procalcitonin 31.31 H 01/08/24 16:34: POC Glucose 247 H 01/08/24 23:00: POC Glucose 261 H 01/09/24 01:24: POC Glucose 252 H 01/09/24 03:40: WBC 19.3 H, RBC 3.44 L, Hgb 9.7 L, Hct 29.0 L, MCV 84.3, MCH 28.2, MCHC 33.4, RDW Std Deviation 44.3 H, RDW Coeff of Yassine 14.5, Plt Count 135 L, MPV 11.2, Immature Gran % (Auto) 3.400 H, Neut % (Auto) 77.4 H, Lymph % (Auto) 7.8 L, [place] % (Auto) 11.0 H, Eos % (Auto) 0.1, Baso % (Auto) 0.3, A bsolute Neuts (auto) 15.0 H, Absolute Lymphs (auto) 1.50, Nucleated RBC % 0, Differential Comment SCANNED, Diff Path Review October, ESR 82 H, Sodium 136, Potassium 3.6, Chloride 103, Carbon Dioxide 27.0, Anion Gap 6, BUN 37 H, Creatinine 0.99, Estim Creat Clear Calc 82.53, Est GFR (MDRD) Af Amer 101, Est GFR (MDRD) Non-Af 83, BUN/Creatinine Ratio 37.3 H, Glucose 225 H, Calcium 9.1, Phosphorus 2.7, Magnesium 1.8, Total Bilirubin 4.70 H, AST 24, ALT 20, Alkaline Phosphatase 152 H, C-React Prot Ext Range 271.00 H, Total Protein 5.6 L, Albumin 1.4 L, Globulin 4.2, Albumin/Globulin Ratio 0.3 L 01/09/24 05:51: POC Glucose 219 H Micro: Microbiology 01/07/24 17:48 Blood Culture (Wb) - Right Forearm Bacteria Detection (PCR) - Final Strep anginosus 01/07/24 17:48 Blood Culture (Wb) - Right Forearm Blood Culture - Preliminary Streptococcus group C 01/07/24 17:48 Blood Culture (Wb) - Anticubital Left Blood Culture - Preliminary ABG Data ABG results: ABG 01/08/24 01/08/24 01/08/24 13:28 20:18 23:14 Specimen Type ART FELTON ART Sample Site L Radial L Radial L Radial pH 7.59 H 7.53 H Bicarbonate Actual 25.1 25.0 Total CO2 26 26 Base Excess 4 H 2 O2 Saturation 94 L 98 O2 % 3.0 60.0 50.0 ABG pCO2 26.0 L 29.7 L ABG pO2 56 L 92 Zoltan Test Positive Positive VBG pH 7.46 H VBG pO2 19 L* VBG HCO3 26 VBG Total CO2 27 VBG O2 Sat (Calc) 32 L VBG Base Excess 2 POC Mix VBG pCO2 Pt Tmp 36.5 L Respiration Rate 14 12 O2 Delivery Device Cannula BiPAP Adult Vent Vent Mode Not entered AC Tidal Volume 500.0 POC PEEP 10 5 Crit Call To/Read Back Yes Yes Blood Gas Notified Whom GUANACO Ibarra Blood Gas Notified Time 13:30:14 20:20:35 Clinical Comments 07/0401/09/24 02:40 Specimen Type ART Sample Site L Radial pH 7.53 H Bicarbonate Actual 27.0 H Total CO2 28 Base Excess 4 H O2 Saturation 98 O2 % 40.0 ABG pCO2 32.7 L ABG pO2 86 Zoltan Test Positive VBG pH VBG pO2 VBG HCO3 VBG Total CO2 VBG O2 Sat (Calc) VBG Base Excess POC Mix VBG pCO2 Pt Tmp Respiration Rate 12 O2 Delivery Device Adult Vent Vent Mode AC Tidal Volume 450.0 POC PEEP 5 Crit Call To/Read Back Blood Gas Notified Whom Blood Gas Notified Time Clinical Comments Rhythm Strip Rhythm Strip: Sinus Tach Rate: 109 Ectopy: None Imaging Radiology Impression Chest X-Ray 01/08/24 05:55 IMPRESSION: Increased linear markings at the left lung base suggestive of left basilar atelectasis. Electronically Signed: Israel Cote MD at 8:14 EDT , Chest X-Ray 01/08/24 13:05 IMPRESSION: Residual linear atelectasis at the left lung base although there has been improvement as compared to prior study. Electronically Signed: Israel Cote MD at 13:20 EDT , Liver Ultrasound 01/08/24 13:17 IMPRESSION: Hepatic steatosis and hepatomegaly Mild gallbladder distention with suggestion of minimal layering sludge. Pancreatic tail is obscured by bowel gas, limiting exam Electronically Signed: Jon Gold MD at 22:11 EDT , Cervical Spine CT 01/08/24 18:02 IMPRESSION: Diffuse prevertebral soft tissue thickening of uncertain etiology. Consider CT neck with IV contrast when clinically able better evaluate for prevertebral soft tissue abscess or pharyngeal inflammation. No evidence of acute cervical spinal fracture or spondylolisthesis. Spondylosis as above. Electronically Signed: Jon Gold MD at 22:36 EDT , Chest/Abdomen/Pelvis CT 01/08/24 18:02 IMPRESSION: Findings concerning for descending pharyngitis and superior mediastinitis. CT neck with IV contrast may be beneficial to exclude retropharyngeal abscess. Edema and emphysema within left sternocleidomastoid muscle and left pectoralis muscle concerning for myositis in the absence of recent instrumentation. 1 cm appendix with mild surrounding edema concerning for acute appendicitis. Primary differential is mucocele with incidental surrounding stranding. Surgical consultation recommended. Hepatosplenomegaly. Electronically Signed: Jon Gold MD at 23:35 EDT , ADDENDUM: 01/09/24 0016 IMPRESSION: Findings concerning for descending pharyngitis and superior mediastinitis. CT neck with IV contrast may be beneficial to exclude retropharyngeal abscess. Edema and emphysema within left sternocleidomastoid muscle and left pectoralis muscle concerning for myositis in the absence of recent instrumentation. 1 cm appendix with mild surrounding edema concerning for acute appendicitis. Primary differential is mucocele with incidental surrounding stranding. Surgical consultation recommended. Hepatosplenomegaly. N.B. : The above Results were Read Back by Jon Gold MD to Angelito Mays DO, and understanding confirmed on 01/09/2024 00:08:43 (ET). Electronically Signed: Jon Gold MD at 23:35 EDT , Upper Extremity CT 01/08/24 18:02 IMPRESSION: Mild glenohumeral and acromioclavicular osteoarthritis. No evidence of acute injury. Partially seen left anterior chest wall subcutaneous emphysema better assessed on CT chest. Electronically Signed: Jon Gold MD at 23:19 EDT , Chest X-Ray 01/08/24 20:50 IMPRESSION: Endotracheal tube tip 5.2 cm above the lee. Increased linear atelectasis in the left lung base. Electronically Signed: Jon Gold MD at 21:53 EDT , Soft Tissue Neck CT 01/09/24 00:13 IMPRESSION: Findings concerning for traumatic left sternoclavicular joint cephalad subluxation. Anterior mediastinal and anterior chest wall edema/emphysema may be traumatic in etiology. No evidence of active hemorrhage or enlarging hematoma. Diffuse prevertebral soft tissue thickening is nonspecific. Differential includes pharyngitis with inferior retropharyngeal extension of infection into the superior mediastinal. There is no evidence of retropharyngeal abscess. If there is absence of clinical infection MRI could better assess ligamentous structures of the cervical spine. No evidence of acute osseous injury of the cervical spine. Scattered dental caries and alveolar root odontogenic abscess without overlying soft tissue inflammation. Electronically Signed: Jon Gold MD at 3:02 EDT , Charges/Coding Visit Charges Office Visits / Consults: 21740 IP Consult L3
--- NOTE | 2024-01-09 08:48 | CASEMGMT ---
Dr. Muñiz states that the pt is requiring transfer to a tertiary facility in regard to higher level of care. MD notified that the pt is SP and can go to any facility. PLAN: Transfer to tertiary facility.
--- NOTE | 2024-01-09 09:00 | RAD_ITS ---
STUDY: X-RAY - ABDOMEN/PELVIS REASON FOR EXAM: Male, 53 years old. OG placement TECHNIQUE: Single AP view of the abdomen / pelvis. COMPARISON: None. FINDINGS: Nasogastric tube with the tip in left upper quadrant, likely in the cardia of the stomach. Side port is likely in the distal esophagus. There is an unremarkable bowel gas pattern. The visualized liver, spleen and kidneys are grossly normal in size and morphology. Normal soft tissue structures. Mild dextroscoliosis lumbar spine with degenerative disc disease RAD/Abdomen Single View (Portable) IMPRESSION: 1. Nasogastric tube with the tip of the left upper quadrant likely in the cardia of the stomach with the side port likely in the distal esophagus. 2. Nonspecific bowel gas pattern. 3. Mild dextro scoliosis lumbar spine with degenerative disc disease. Electronically Signed: Jono Dorsey MD at 9:21 EDT ,
[2024-01-09] MEDS: Clindamycin 900 MG/50 ML BAG 75 MG IV ×2 (09:12→13:56)
--- NOTE | 2024-01-09 09:42 | CON.PCM.CC_ITS ---
HPI Consult Data Date of Consult: 01/09/24 HPI Narrative HPI Narrative: TERENCE HAMEED, is a 53 M with past medical history of DM on metformin admitted for hyperglycemia on 01/06. Patient decompensated and required intubation last night. He was noted to have left neck/shoulder area swelling. CT of neck soft tissue with finding of pharyngitis with inferior retropharyngeal extension of infection into the superior mediastinum. CT abdomen with possible appendicitis. Blood culutures with strept. Patient is on Vancomycin/Zosyn, clindamycin added. On my evaluation of patient in ICU, he is intubated and sedated with propofol and fentanyl Vent settings 12/450/5/30% P/E: Intubated, sedated HEENT: ETT, neck swelling more on the left side Respiratory: Good air entry bilaterally CVS: S1, S2 are well heard Abd: Soft Extre: No edema OUTSOLE CASER: Intubated, sedated Labs/imaging reviewed Assessment/Plan # Septic shock most likely source soft tissue infection with pharyngitis with extension to retropharygeal Continue with antibiotics ( Vancomycin/Zosyn/Clindamycin) Would need surgical intervention Noted transfer plan to higher level of care Would benefit from MRI of soft tissue to assess better # Acute respiratory failure Continue with vent support ABG/CXR # Uncontrolled DM Continue with ISS Monitor blood sugar DVT/GI prophylaxis Critical care time 50 minutes Entire ecounter done via Telemedicine [facility] Medical History (Updated 01/09/24 @ 09:00 by Renae GR, PA-C) Tobacco abuse Hypertension Diabetes mellitus Home Medications ?Medication ?Instructions ?Recorded ?Last Taken ?Type lisinopril 20 mg tablet 20 mg PO DAILY HTN 01/07/24 Unknown History metformin 500 mg tablet 1,000 mg PO BID 01/07/24 Unknown History Allergy/AdvReac Type Severity Reaction Status Date / Time No Known Allergies Allergy Verified 01/07/24 15:04 Family History Other Diabetes Hypertension Surgical History no surgical history Social History current occupational status: employed 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 Smoking Status: Current every day smoker tobacco type: cigarettes and smokeless tobacco alcohol intake: never substance use type: does not use Objective Data Objective Data Vital Signs: Vital Signs Last response 3 Temperature 36.8 C 01/09/24 04:00 Temperature Source Temporal 01/09/24 04:00 Pulse Rate 123 H 01/09/24 07:30 Pulse Strength Normal (2+) 01/08/24 10:00 Respiratory Rate 27 H 01/09/24 07:30 Respiratory Effort Mechanically Ventilated 01/09/24 04:00 Respiratory Depth Normal 01/08/24 16:00 Respiratory Pattern Tachypnea 01/09/24 07:30 Blood Pressure 115/68 01/09/24 07:00 Blood Pressure Mean 83 01/09/24 07:00 Blood Pressure Source Monitor 01/09/24 07:00 Blood Pressure Position Semi-Fowlers 01/09/24 07:00 Blood Pressure Location Left Arm 01/09/24 07:00 Pulse Ox 97 01/09/24 07:30 Oxygen Delivery Method Mechanical Ventilator 01/09/24 07:00 Oxygen Flow Rate (L/min) 2 01/08/24 13:20 Fraction of Inspired Oxygen (FIO2) 30 01/09/24 07:30 I&O: I&O Last 24 Hours 3 01/08/24 01/08/24 01/09/24 11:59 23:59 11:59 Intake Total 1735 / 4903.29 3133.64 / 4903.29 967.93 / 967.93 Output Total 1425 / 1425 600 / 600 Balance 1735 / 3478.29 1708.64 / 3478.29 367.93 / 367.93 I&O: Total Stay 3 01/07/24 15:03 thru 01/09/24 09:12 Intake Total 7836.57 Output Total 2024 Balance 5811.57 Current Meds Ordered / Administered: Current meds ordered / Administered 3 Generic Name Dose Route Start Last Admin Trade Name Freq PRN Reason Stop Dose Admin Acetaminophen 650 mg 01/09/24 09:06 Acetaminophen 650 Mg/20 Ml Udc GT Q6H PRN PRN Pain 1-10 or Fever Albuterol Sulfate 2.5 mg 01/07/24 20:04 Albuterol 2.5 Mg/3 Ml Vial.Neb. INHALATION Q2H PRN PRN SOB &/OR WHEEZING Albuterol/Ipratropium 3 ml 01/08/24 20:45 01/09/24 07:29 Ipratropium/Albuterol Sulfate 3 Ml Ampul.Neb INHALATION 3 ml Q4H.RT GAURI Administration Chlorhexidine Gluconate 15 ml 01/08/24 22:00 01/08/24 22:48 Chlorhexidine 15 Ml PO 15 ml BID GAURI Administration Guaifenesin 20 ml 01/07/24 20:04 Guaifenesin 10 Ml Udc (200mg/10ml) PO Q4H PRN PRN COUGH Hydralazine HCl 10 mg 01/07/24 20:04 Hydralazine 20 Mg/Ml Vial IV Q6H PRN PRN SBP>160 Protocol Vancomycin IV-PHARMACY TO DOSE 500 mls @ 250 mls/hr 01/08/24 11:28 1 each/ Sodium Chloride IV PRN PRN Rx to Dose Protocol Piperacillin Sod/Tazobactam 50 mls @ 12.5 mls/hr 01/08/24 22:00 01/09/24 06:04 Sod 3.375 gm/ Sodium Chloride IV 12.5 mls/hr Q8 GAURI Administration Vancomycin HCl 1,750 mg/ 535 mls @ 250 mls/hr 01/09/24 01:00 01/09/24 04:55 Sodium Chloride IV Infused Q12H GAURI Infusion Propofol 1,000 mg in 100 mls @ 5.142 mls/hr 01/08/24 20:35 01/09/24 09:12 Diprivan CONT INF 50 mcg/kg/min .Q12H GAURI 25.7 mls/hr Administration Protocol 10 MCG/KG/MIN Pantoprazole Sodium 40 mg/ 110 mls @ 330 mls/hr 01/08/24 20:35 01/08/24 23:07 Sodium Chloride IV Infused Q24 GAURI Infusion Fentanyl 100 mls @ 5 mls/hr 01/08/24 23:00 01/09/24 07:00 CONT INF 175 mcg/hr UD GAURI 17.5 mls/hr Titration Protocol 50 MCG/HR Clindamycin Phosphate 900 mg in 50 mls @ 75 mls/hr 01/09/24 14:00 Cleocin IV Q8 GAURI Insulin Glargine 15 unit 01/08/24 10:00 01/08/24 22:57 Insulin Glargine-Yfgn 100 Unit/Ml Pen SC 15 unit BID GAURI Administration Insulin Human Lispro 0 unit 01/09/24 00:00 01/09/24 05:52 Insulin Lispro 100 Unit/Ml Insuln.Pen SC 6 units Q6 [facility] Administration Protocol Ondansetron HCl 4 mg 01/07/24 20:04 Ondansetron 4 Mg/2 Ml Vial IV Q8H PRN PRN NAUSEA/VOMITING Senna/Docusate Sodium 2 tablet 01/07/24 20:04 Senna/Docusate Sodium 1 Tablet PO BID PRN PRN Constipation Sodium Chloride 10 - 40 ml 01/07/24 20:08 0.9% Saline Lock 10 Ml Syringe IV UD PRN SALINE FLUSH Vancomycin Protocol 1 lab 01/09/24 22:30 Vancomycin Trough/Random Due MC 01/10/24 02:30 DAILY [facility] Lab / Micro Data 01/09/24 03:40 01/09/24 03:40 Labs: Laboratory Results - last 24 hr 01/07/24 15:47: Diff Path Review Reviewed 01/08/24 06:09: C-React Prot Ext Range 241.00 H, Procalcitonin Cancelled, Free T4 1.24, Free T3 pg/dL 1.1 L 01/08/24 11:13: POC Glucose 268 H 01/08/24 12:00: Urine Color Yellow, Urine Clarity Clear, Urine pH 6.0, Ur Specific Dickey 1.015, Urine Protein 100 H, Urine Glucose (UA) 250 H, Urine Ketones 15 H, Urine Occult Blood 25 H, Urine Nitrite Negative, Urine Bilirubin 3 H, Urine Urobilinogen 8 H, Ur Leukocyte Esterase 25 H, Urine RBC 0-5 SEEN, Urine WBC 0-5 SEEN, Ur Squamous Epith Cells 0-5 SEEN, Urine Bacteria 1+, Urine Mucus 0 SEEN 01/08/24 13:02: Lactic Acid 1.6, B-Natriuretic Peptide 150.5 H 01/08/24 13:43: Procalcitonin 31.31 H 01/08/24 16:34: POC Glucose 247 H 01/08/24 23:00: POC Glucose 261 H 01/09/24 01:24: POC Glucose 252 H 01/09/24 03:40: WBC 19.3 H, RBC 3.44 L, Hgb 9.7 L, Hct 29.0 L, MCV 84.3, MCH 28.2, MCHC 33.4, RDW Std Deviation 44.3 H, RDW Coeff of Yassine 14.5, Plt Count 135 L, MPV 11.2, Immature Gran % (Auto) 3.400 H, Neut % (Auto) 77.4 H, Lymph % (Auto) 7.8 L, Laporte % (Auto) 11.0 H, Eos % (Auto) 0.1, Baso % (Auto) 0.3, A bsolute Neuts (auto) 15.0 H, Absolute Lymphs (auto) 1.50, Nucleated RBC % 0, Differential Comment SCANNED, Diff Path Review October, ESR 82 H, Sodium 136, Potassium 3.6, Chloride 103, Carbon Dioxide 27.0, Anion Gap 6, BUN 37 H, Creatinine 0.99, Estim Creat Clear Calc 82.53, Est GFR (MDRD) Af Amer 101, Est GFR (MDRD) Non-Af 83, BUN/Creatinine Ratio 37.3 H, Glucose 225 H, Calcium 9.1, Phosphorus 2.7, Magnesium 1.8, Total Bilirubin 4.70 H, AST 24, ALT 20, Alkaline Phosphatase 152 H, C-React Prot Ext Range 271.00 H, Total Protein 5.6 L, Albumin 1.4 L, Globulin 4.2, Albumin/Globulin Ratio 0.3 L 01/09/24 05:51: POC Glucose 219 H Micro: Microbiology 01/07/24 17:48 Blood Culture (Wb) - Anticubital Left Blood Culture - Preliminary Streptococcus group C 01/07/24 17:48 Blood Culture (Wb) - Right Forearm Bacteria Detection (PCR) - Final Strep anginosus 01/07/24 17:48 Blood Culture (Wb) - Right Forearm Blood Culture - Preliminary Streptococcus group C ABG Data ABG results: ABG 01/08/24 01/08/24 01/08/24 13:28 20:18 23:14 Specimen Type ART FELTON ART Sample Site L Radial L Radial L Radial pH 7.59 H 7.53 H Bicarbonate Actual 25.1 25.0 Total CO2 26 26 Base Excess 4 H 2 O2 Saturation 94 L 98 O2 % 3.0 60.0 50.0 ABG pCO2 26.0 L 29.7 L ABG pO2 56 L 92 Zoltan Test Positive Positive VBG pH 7.46 H VBG pO2 19 L* VBG HCO3 26 VBG Total CO2 27 VBG O2 Sat (Calc) 32 L VBG Base Excess 2 POC Mix VBG pCO2 Pt Tmp 36.5 L Respiration Rate 14 12 O2 Delivery Device Cannula BiPAP Adult Vent Vent Mode Not entered AC Tidal Volume 500.0 POC PEEP 10 5 Crit Call To/Read Back Yes Yes Blood Gas Notified Whom GUANACO Ibarra Blood Gas Notified Time 13:30:14 20:20:35 Clinical Comments 07/0401/09/24 02:40 Specimen Type ART Sample Site L Radial pH 7.53 H Bicarbonate Actual 27.0 H Total CO2 28 Base Excess 4 H O2 Saturation 98 O2 % 40.0 ABG pCO2 32.7 L ABG pO2 86 Zoltan Test Positive VBG pH VBG pO2 VBG HCO3 VBG Total CO2 VBG O2 Sat (Calc) VBG Base Excess POC Mix VBG pCO2 Pt Tmp Respiration Rate 12 O2 Delivery Device Adult Vent Vent Mode AC Tidal Volume 450.0 POC PEEP 5 Crit Call To/Read Back Blood Gas Notified Whom Blood Gas Notified Time Clinical Comments Rhythm Strip Rhythm Strip: Sinus Tach Rate: 109 Ectopy: None Imaging Radiology Impression Chest X-Ray 01/08/24 13:05 IMPRESSION: Residual linear atelectasis at the left lung base although there has been improvement as compared to prior study. Electronically Signed: Israel Cote MD at 13:20 EDT , Liver Ultrasound 01/08/24 13:17 IMPRESSION: Hepatic steatosis and hepatomegaly Mild gallbladder distention with suggestion of minimal layering sludge. Pancreatic tail is obscured by bowel gas, limiting exam Electronically Signed: Jon Gold MD at 22:11 EDT , Cervical Spine CT 01/08/24 18:02 IMPRESSION: Diffuse prevertebral soft tissue thickening of uncertain etiology. Consider CT neck with IV contrast when clinically able better evaluate for prevertebral soft tissue abscess or pharyngeal inflammation. No evidence of acute cervical spinal fracture or spondylolisthesis. Spondylosis as above. Electronically Signed: Jon Gold MD at 22:36 EDT , Chest/Abdomen/Pelvis CT 01/08/24 18:02 IMPRESSION: Findings concerning for descending pharyngitis and superior mediastinitis. CT neck with IV contrast may be beneficial to exclude retropharyngeal abscess. Edema and emphysema within left sternocleidomastoid muscle and left pectoralis muscle concerning for myositis in the absence of recent instrumentation. 1 cm appendix with mild surrounding edema concerning for acute appendicitis. Primary differential is mucocele with incidental surrounding stranding. Surgical consultation recommended. Hepatosplenomegaly. Electronically Signed: Jon Gold MD at 23:35 EDT , ADDENDUM: 01/09/24 0016 IMPRESSION: Findings concerning for descending pharyngitis and superior mediastinitis. CT neck with IV contrast may be beneficial to exclude retropharyngeal abscess. Edema and emphysema within left sternocleidomastoid muscle and left pectoralis muscle concerning for myositis in the absence of recent instrumentation. 1 cm appendix with mild surrounding edema concerning for acute appendicitis. Primary differential is mucocele with incidental surrounding stranding. Surgical consultation recommended. Hepatosplenomegaly. N.B. : The above Results were Read Back by Jon Gold MD to Angelito Mays DO, and understanding confirmed on 01/09/2024 00:08:43 (ET). Electronically Signed: Jon Gold MD at 23:35 EDT , Upper Extremity CT 01/08/24 18:02 IMPRESSION: Mild glenohumeral and acromioclavicular osteoarthritis. No evidence of acute injury. Partially seen left anterior chest wall subcutaneous emphysema better assessed on CT chest. Electronically Signed: Jon Gold MD at 23:19 EDT , Chest X-Ray 01/08/24 20:50 IMPRESSION: Endotracheal tube tip 5.2 cm above the lee. Increased linear atelectasis in the left lung base. Electronically Signed: Jon Gold MD at 21:53 EDT , Soft Tissue Neck CT 01/09/24 00:13 IMPRESSION: Findings concerning for traumatic left sternoclavicular joint cephalad subluxation. Anterior mediastinal and anterior chest wall edema/emphysema may be traumatic in etiology. No evidence of active hemorrhage or enlarging hematoma. Diffuse prevertebral soft tissue thickening is nonspecific. Differential includes pharyngitis with inferior retropharyngeal extension of infection into the superior mediastinal. There is no evidence of retropharyngeal abscess. If there is absence of clinical infection MRI could better assess ligamentous structures of the cervical spine. No evidence of acute osseous injury of the cervical spine. Scattered dental caries and alveolar root odontogenic abscess without overlying soft tissue inflammation. Electronically Signed: Jon Gold MD at 3:02 EDT , KUB X-Ray 01/09/24 09:00 IMPRESSION: 1. Nasogastric tube with the tip of the left upper quadrant likely in the cardia of the stomach with the side port likely in the distal esophagus. 2. Nonspecific bowel gas pattern. 3. Mild dextro scoliosis lumbar spine with degenerative disc disease. Electronically Signed: Jono Dorsey MD at 9:21 EDT , Assessment and Plan . Assessment and plan: Critical Care Time: The entirety of this encounter was done via Telemedicine
[2024-01-09] MEDS: Chlorhexidine 15 ML PO (09:44)
[2024-01-09] MEDS: Pantoprazole Sodium 40 MG in 0.9% Normal Saline (100mL MB+) 100 ML 330 MG IV (10:02)
--- NOTE | 2024-01-09 10:35 | RAD_ITS ---
STUDY: X-RAY - ABDOMEN/PELVIS REASON FOR EXAM: Male, 53 years old. OG PLACEMENT TECHNIQUE: Single AP view of the abdomen / pelvis. COMPARISON: 01/09/2020 09/30/1953 FINDINGS: Interval advancement of the nasogastric tube with the tip in the midline likely in the body the stomach. There is an unremarkable bowel gas pattern. The visualized liver, spleen and kidneys are grossly normal in size and morphology. Normal soft tissue structures. Mild dextroscoliosis lumbar spine with degenerative disc disease RAD/Abdomen Single View (Portable) IMPRESSION: 1. Interval advancement of nasogastric tube with the tip likely in the body the stomach. 2. Nonspecific bowel gas pattern. 3. Mild dextroscoliosis lumbar spine with degenerative disc disease. Electronically Signed: Jono Dorsey MD at 10:49 EDT ,
[2024-01-09] MEDS: Insulin Glargine-YFGN 100 UNIT/ML Pen 15 UNIT SC (10:51)
[2024-01-09] MEDS: Acetaminophen 650 MG/20 ML UDC GT (10:56)
[2024-01-09 11:18] LABS: Bedside Glucose 231 mg/dL (74-106)
[2024-01-09 11:52] LABS: Pathologist Review Reviewed
[2024-01-09 11:55] LABS: Pathologist Review Reviewed
--- NOTE | 2024-01-09 13:06 | DCINST_ITS ---
Discharge Instructions Follow Up Care Test Results: Test results from this visit will be discussed in further detail at your follow- up appointment, if applicable. Discharge Plan Admission Admit Date/Time: 01/07/24 18:25 Primary Reason for Your Visit: Fatigue Attending Provider: Lydia Muñiz Primary Care Provider: Hosea Mckeon Consulting Providers: Estela Ibarra; Ramirez Aguilar; Rm Jaeger; Servando Lawson; Jassi Gonzalez; Florencio Marroquin; Contreras Zavala; Nat Lynch; Ovidio Suh; Yobany Bella; Faye Rosen; Angel Benton; Conor Chino; William Sweeney; Olegario Meyer; Richard Hoyos; Drew Ramirez; Bernarda Ba Discharge Orders/Prescriptions Prescriptions: No Action metformin 500 mg tablet 1,000 mg PO BID lisinopril 20 mg tablet 20 mg PO DAILY Referrals / Follow Up: Hosea Mckeon DO [Primary Care Provider] - Disposition Disposition (needs filled in before D/C Order can be placed): [facility]
--- NOTE | 2024-01-09 13:08 | PCM.DC.SUM ---
Providers Date of Admission: 01/07/24 Date of Discharge: 01/09/24 Primary Care Physician: Dr. Hosea Mckeon, Consultations 01/08/24 11:28 Consult: Infectious Disease Routine Consulting Provider: Ramirez Aguilar Reason for Consult: febrile, inc WBC, inc crp and esr, unclear infxtious source EMERGENT Consult: No MD Notified: Yes Date Notified: 01/08/24 Time Notified: 11:45 Method of Notification: Text 01/08/24 12:54 Consult: Size Roller Operator / Pulmonary Medicine Routine Consulting Provider: Intensivists/Pulmonary Med Reason for Consult: sepsis, critical illness EMERGENT Consult: No MD Notified: Yes Date Notified: 01/08/24 Time Notified: 12:54 Method of Notification: Verbal 01/09/24 05:37 Consult: General Surgery Routine Consulting Provider: Bernarda Ba Reason for Consult: mediastinal abscess EMERGENT Consult: No MD Notified: Yes Date Notified: 01/09/24 Time Notified: 07:40 Method of Notification: Verbal 01/09/24 08:21 Consult: Size Roller Operator / Pulmonary Medicine Routine Consulting Provider: Intensivists/Pulmonary Med Reason for Consult: teleicu EMERGENT Consult: No MD Notified: Yes Date Notified: 01/09/24 Time Notified: 08:21 Method of Notification: Verbal Reason For Visit: SEVERE HYPERGLYCEMIA Diagnosis Discharge Diagnosis (1) Sepsis: Status: Acute Code(s): A41.9 - Sepsis, unspecified organism (2) Bacteremia: Status: Acute Code(s): R78.81 - Bacteremia (3) Tachycardia: Status: Acute Code(s): R00.0 - Tachycardia, unspecified (4) Hyperglycemia: Status: Acute Code(s): R73.9 - Hyperglycemia, unspecified (5) Hyperbilirubinemia: Status: Acute Code(s): E80.6 - Other disorders of bilirubin metabolism (6) Elevated serum creatinine: Status: Acute Code(s): R79.89 - Other specified abnormal findings of blood chemistry (7) Benign essential hypertension: Status: Chronic Code(s): I10 - Essential (primary) hypertension (8) Substance use disorder: Status: Acute Code(s): F19.90 - Other psychoactive substance use, unspecified, uncomplicated (9) Soft tissue emphysema: Status: Acute Code(s): T79.7XXA - Traumatic subcutaneous emphysema, initial encounter Plan #Sepsis with GPC bacteremia- suspected 2/2 retropharygneal infxn #Left chest wall swelling and emphysema #Acute metabolic encephalopathy 2/2 sepsis # History of substance use # Uncontrolled type 2 diabetes mellitus # DIVINE on admission Medications at Discharge Home Medications lisinopril 20 mg tablet 20 mg PO DAILY HTN 01/07/24 metformin 500 mg tablet 1,000 mg PO BID 01/07/24 Hospital Course Procedures - (intubation) Summary of Care Provided Minutes Spent on Discharge: 60 Hospital Course: 53-year-old male history of tobacco abuse, hypertension, diabetes, opiate use disorder presented [facility] ED 01/07/2024 with general malaise and elevated blood sugar. When he presented patient did not appear to feel well however vitals were stable and he had no localizing complaints, white count was slightly elevated at 16 and creatinine up but given patient's significant hyperglycemia it seems that he was volume depleted. He was admitted and started on IV fluids, given the elevated white count with left shift it was decided to put him on Levaquin and obtain cultures. The following day patient's mental status deteriorated and became tachypneic and tachycardic, he grew 2 out of 2 cultures of strep anginosus and had elevated ESR, CRP, Pro-Lopez white blood cell count, he had broadened antibiotics and infectious disease and ICU were consulted. It was discovered the patient had some swelling over his left anterior chest wall and multiple CTs were ordered to evaluate that further and look for cause of infection. Heart and CT scans patient was intubated due to significant tachypnea and fatiguing. CT scans showed left anterior chest wall edema and emphysema with prevertebral swelling possible pharyngitis extending into the mediastinum and there is question of appendicitis. Clindamycin was added. Surgeon evaluated and given clinical picture seemed infection was more likely due to the upper infection and it was ultimately recommended patient transfer to tertiary facility. Contacted multiple facilities and ultimately patient was accepted and got a bed at [facility]. Patient transferred to [facility]. Physical Exam Narrative General: Intubated and sedated HEENT: Atraumatic Eyes: Not opening eyes spontaneously Respiratory: Mechanically ventilated Cardiovascular: Low-grade tachycardia GI: nondistended Musculoskeletal: Not spontaneously moving extremities due to intubated and sedated Neuro: Unable to participate in neuroexam Skin: Swelling over left anterior chest wall Psych: Unable to cooperate secondary to mental status and intubated and sedated Weight / BMI Weight Weight: 81.4 kg Body Mass Index (BMI) 27.3 ABG / Lab / Microbiology Data 01/09/24 03:40 01/09/24 03:40 Laboratory: Laboratory Results - last 24 hr 01/08/24 06:09: Diff Path Review Reviewed, Procalcitonin Cancelled 01/08/24 13:02: Lactic Acid 1.6, B-Natriuretic Peptide 150.5 H 01/08/24 13:43: Procalcitonin 31.31 H 01/08/24 16:34: POC Glucose 247 H 01/08/24 23:00: POC Glucose 261 H 01/09/24 01:24: POC Glucose 252 H 01/09/24 03:40: WBC 19.3 H, RBC 3.44 L, Hgb 9.7 L, Hct 29.0 L, MCV 84.3, MCH 28.2, MCHC 33.4, RDW Std Deviation 44.3 H, RDW Coeff of Yassine 14.5, Plt Count 135 L, MPV 11.2, Immature Gran % (Auto) 3.400 H, Neut % (Auto) 77.4 H, Lymph % (Auto) 7.8 L, Moca % (Auto) 11.0 H, Eos % (Auto) 0.1, Baso % (Auto) 0.3, Absolute Neuts (auto) 15.0 H, Absolute Lymphs (auto) 1.50, Nucleated RBC % 0, Differential Comment SCANNED, Diff Path Review Reviewed, ESR 82 H, Sodium 136, Potassium 3.6, Chloride 103, Carbon Dioxide 27.0, Anion Gap 6, BUN 37 H, Creatinine 0.99, Estim Creat Clear Calc 82.53, Est GFR (MDRD) Af Amer 101, Est GFR (MDRD) Non-Af 83, BUN/Creatinine Ratio 37.3 H, Glucose 225 H, Calcium 9.1, Phosphorus 2.7, Magnesium 1.8, Total Bilirubin 4.70 H, AST 24, ALT 20, Alkaline Phosphatase 152 H, C-React Prot Ext Range 271.00 H, Total Protein 5.6 L, Albumin 1.4 L, Globulin 4.2, Albumin/Globulin Ratio 0.3 L 01/09/24 05:51: POC Glucose 219 H 01/09/24 10:49: POC Glucose 231 H Microbiology: Microbiology 01/08/24 20:35 Sputum, Expectorated/Coughed Gram Stain - Final 01/07/24 17:48 Blood Culture (Wb) - Anticubital Left Blood Culture - Preliminary Streptococcus group C 01/07/24 17:48 Blood Culture (Wb) - Right Forearm Bacteria Detection (PCR) - Final Strep anginosus 01/07/24 17:48 Blood Culture (Wb) - Right Forearm Blood Culture - Preliminary Streptococcus group C 01/07/24 21:00 Mucosa - Nasopharyngeal Respiratory Panel (PCR) - Final 01/07/24 16:23 Urine, Clean Catch Legionella Antigen - Final 01/07/24 16:23 Urine, Clean Catch Streptococcus pneumoniae Antigen (M - Final 01/07/24 20:30 Nasal Secretion SARS-CoV-2 Antigen (Rapid) - Final ABG: ABG 01/08/24 01/08/24 01/08/24 13:28 20:18 23:14 Specimen Type ART FELTON ART Sample Site L Radial L Radial L Radial pH 7.59 H 7.53 H Bicarbonate Actual 25.1 25.0 Total CO2 26 26 Base Excess 4 H 2 O2 Saturation 94 L 98 O2 % 3.0 60.0 50.0 ABG pCO2 26.0 L 29.7 L ABG pO2 56 L 92 Zoltan Test Positive Positive VBG pH 7.46 H VBG pO2 19 L* VBG HCO3 26 VBG Total CO2 27 VBG O2 Sat (Calc) 32 L VBG Base Excess 2 POC Mix VBG pCO2 Pt Tmp 36.5 L Respiration Rate 14 12 O2 Delivery Device Cannula BiPAP Adult Vent Vent Mode Not entered AC Tidal Volume 500.0 POC PEEP 10 5 Crit Call To/Read Back Yes Yes Blood Gas Notified Whom GUANACO Ibarra Blood Gas Notified Time 13:30:14 20:20:35 Clinical Comments 07/0401/09/24 02:40 Specimen Type ART Sample Site L Radial pH 7.53 H Bicarbonate Actual 27.0 H Total CO2 28 Base Excess 4 H O2 Saturation 98 O2 % 40.0 ABG pCO2 32.7 L ABG pO2 86 Zoltan Test Positive VBG pH VBG pO2 VBG HCO3 VBG Total CO2 VBG O2 Sat (Calc) VBG Base Excess POC Mix VBG pCO2 Pt Tmp Respiration Rate 12 O2 Delivery Device Adult Vent Vent Mode AC Tidal Volume 450.0 POC PEEP 5 Crit Call To/Read Back Blood Gas Notified Whom Blood Gas Notified Time Clinical Comments Radiography Diagnostic Testing: Radiology Impression Chest X-Ray 01/08/24 13:05 IMPRESSION: Residual linear atelectasis at the left lung base although there has been improvement as compared to prior study. Electronically Signed: Israel Cote MD at 13:20 EDT , Liver Ultrasound 01/08/24 13:17 IMPRESSION: Hepatic steatosis and hepatomegaly Mild gallbladder distention with suggestion of minimal layering sludge. Pancreatic tail is obscured by bowel gas, limiting exam Electronically Signed: Jon Gold MD at 22:11 EDT , Cervical Spine CT 01/08/24 18:02 IMPRESSION: Diffuse prevertebral soft tissue thickening of uncertain etiology. Consider CT neck with IV contrast when clinically able better evaluate for prevertebral soft tissue abscess or pharyngeal inflammation. No evidence of acute cervical spinal fracture or spondylolisthesis. Spondylosis as above. Electronically Signed: Jon Gold MD at 22:36 EDT , Chest/Abdomen/Pelvis CT 01/08/24 18:02 IMPRESSION: Findings concerning for descending pharyngitis and superior mediastinitis. CT neck with IV contrast may be beneficial to exclude retropharyngeal abscess. Edema and emphysema within left sternocleidomastoid muscle and left pectoralis muscle concerning for myositis in the absence of recent instrumentation. 1 cm appendix with mild surrounding edema concerning for acute appendicitis. Primary differential is mucocele with incidental surrounding stranding. Surgical consultation recommended. Hepatosplenomegaly. Electronically Signed: Jon Gold MD at 23:35 EDT Reading Location ID and State: Pending sale to [facility] / [place] Tel , Service support , ADDENDUM: 01/09/24 0016 IMPRESSION: Findings concerning for descending pharyngitis and superior mediastinitis. CT neck with IV contrast may be beneficial to exclude retropharyngeal abscess. Edema and emphysema within left sternocleidomastoid muscle and left pectoralis muscle concerning for myositis in the absence of recent instrumentation. 1 cm appendix with mild surrounding edema concerning for acute appendicitis. Primary differential is mucocele with incidental surrounding stranding. Surgical consultation recommended. Hepatosplenomegaly. N.B. : The above Results were Read Back by Jon Gold MD to Angelito Mays DO, and understanding confirmed on 01/09/2024 00:08:43 (ET). Electronically Signed: Jon Gold MD at 23:35 EDT Reading Location ID and State: [facility] / [place] Tel , Service support , Upper Extremity CT 01/08/24 18:02 IMPRESSION: Mild glenohumeral and acromioclavicular osteoarthritis. No evidence of acute injury. Partially seen left anterior chest wall subcutaneous emphysema better assessed on CT chest. Electronically Signed: Jon Gold MD at 23:19 EDT Reading Location ID and State: [facility] / [place] Tel , Service support , Chest X-Ray 01/08/24 20:50 IMPRESSION: Endotracheal tube tip 5.2 cm above the lee. Increased linear atelectasis in the left lung base. Electronically Signed: Jon Gold MD at 21:53 EDT Reading Location ID and State: Pending sale to [facility] / [place] Tel , Service support , Soft Tissue Neck CT 01/09/24 00:13 IMPRESSION: Findings concerning for traumatic left sternoclavicular joint cephalad subluxation. Anterior mediastinal and anterior chest wall edema/emphysema may be traumatic in etiology. No evidence of active hemorrhage or enlarging hematoma. Diffuse prevertebral soft tissue thickening is nonspecific. Differential includes pharyngitis with inferior retropharyngeal extension of infection into the superior mediastinal. There is no evidence of retropharyngeal abscess. If there is absence of clinical infection MRI could better assess ligamentous structures of the cervical spine. No evidence of acute osseous injury of the cervical spine. Scattered dental caries and alveolar root odontogenic abscess without overlying soft tissue inflammation. Electronically Signed: Jon Gold MD at 3:02 EDT , KUB X-Ray 01/09/24 09:00 IMPRESSION: 1. Nasogastric tube with the tip of the left upper quadrant likely in the cardia of the stomach with the side port likely in the distal esophagus. 2. Nonspecific bowel gas pattern. 3. Mild dextro scoliosis lumbar spine with degenerative disc disease. Electronically Signed: Jono Dorsey MD at 9:21 EDT , KUB X-Ray 01/09/24 10:35 IMPRESSION: 1. Interval advancement of nasogastric tube with the tip likely in the body the stomach. 2. Nonspecific bowel gas pattern. 3. Mild dextroscoliosis lumbar spine with degenerative disc disease. Electronically Signed: Jono Dorsey MD at 10:49 EDT , Meaningful Use Info Meaningful Use Meaningful Use Diagnoses (Choose all that apply): None applicable Ischemic Stroke Statin Dosing Therapy Reference: STATIN DOSE THERAPY REFERENCE: * Patients > 75 years receive moderate or high dose statin therapy. * Patients 75 years or YOUNGER should receive HIGH intensity statin dose unless contraindicated. You will be required to document reason for non-treatment if statin daily dose does not meet guidelines. HIGH DOSE STATIN THERAPY DAILY Atorvastatin > than or = to 40 mg Rosuvastatin > than or = to 20 mg Amlodipine + Atorvastatin > than or = to 2.5/40 mg Ezetimibe + Simvastatin 10/80 mg Simvastatin 80mg Discharge Plan Admission Admit Date/Time: 01/07/24 18:25 Primary Reason for Your Visit: Fatigue Attending Provider: Lydia Muñiz Primary Care Provider: Hosea Mckeon Consulting Providers: Estela Ibarra; Ramirez Aguilar; Rm Jaeger; Servando Lawson; Jassi Gonzalez; Florencio Marroquin; Contreras Zavala; Nat Lynch; Ovidio Suh; Yobany Bella; Faye Rosen; Angel Benton; Conor Chino; William Sweeney; Olegario Meyer; Richard Hoyos; Drew Ramirez; Bernarda Ba Discharge Orders/Prescriptions Prescriptions: No Action metformin 500 mg tablet 1,000 mg PO BID lisinopril 20 mg tablet 20 mg PO DAILY Referrals / Follow Up: Hosea Mckeon DO [Primary Care Provider] - Disposition Disposition (needs filled in before D/C Order can be placed): Acute Care Hospital Charges/Coding Visit Charges Inpatient E&M: 86569 Disch Hosp >30min
== END 2024-01-09 14:40 | disposition short-term general hospital (02) | DRG 871 ==
LOC: ED 15:59 → MS3 19:39 → ICU 01-08 13:20
PROVIDERS: Admitting Provider Internal Medicine; Emergency Provider Emergency Medicine; PCP Family Medicine; Visit Provider Internal Medicine
DX: A40.8 Other streptococcal sepsis (principal); G93.41 Metabolic encephalopathy; J96.01 Acute respiratory failure with hypoxia; J98.51 Mediastinitis; R65.21 Severe sepsis with septic shock; N17.9 Acute kidney failure, unspecified; J39.0 Retropharyngeal and parapharyngeal abscess; T79.7XXA Traumatic subcutaneous emphysema, initial encounter; E87.3 Alkalosis; K35.80 Unspecified acute appendicitis; R16.2 Hepatomegaly with splenomegaly, not elsewhere classified; E11.65 Type 2 diabetes mellitus with hyperglycemia; I10 Essential (primary) hypertension; F17.210 Nicotine dependence, cigarettes, uncomplicated; F17.220 Nicotine dependence, chewing tobacco, uncomplicated; E86.0 Dehydration; W19.XXXA Unspecified fall, initial encounter; R45.1 Restlessness and agitation; Z79.84 Long term (current) use of oral hypoglycemic drugs; Z79.899 Other long term (current) drug therapy
CPT/HCPCS: 31500; 31720; 36415; 36600; 70491; 71045; 71046; 71260; 72125; 73200; 74018; 74177; 76705; 80053; 80307; 81001; 82009; 82077; 82803; 82962; 83036; 83605; 83735; 83880; 84100; 84145; 84439; 84443; 84481; 85025; 85652; 86140; 87040; 87070; 87077; 87086; 87149; 87186; 87205; 87449; 87633; 87811; 93005; 93306; 94002; 94003; 94640; 99252; 99285; J7030; J7040; J7050; J7120; Q9957; Q9967; A4216; C8929; G0463; J2405